=== PATIENT | female | born 1945 | race Caucasian/White ===

== ENCOUNTER → 2016-07-02 | Outpatient (CLI) | payer MEDICARE, BC ==
--- NOTE | 2016-07-03 06:33 | US ---
EXAMINATION TYPE: US mass soft tissue chest DATE OF EXAM: 07/02/2016 4:10 PM COMPARISON: NONE CLINICAL HISTORY: 71-year-old female palpable lump at sternum, N64.59 OTHER SIGNS AND SYMPTOMS IN CAYLA AST. Technique: Targeted sonographic examination at the site of patient's palpable abnormality along the s ternum. FINDINGS: There is a heterogeneous area of hypoechogenicity at the site of patient's palpable finding at the st ernum. Landmarks are not provided to assess the exact location. This appears to be just deep to the s ubcutaneous fat and possibly tenting the superficial fascia. This area measures approximately 2.3 cm craniocaudal by 1.6 cm thick by 2.3 cm wide. No internal vascularity seen. IMPRESSION: Focal heterogeneous area seen measuring 2.3 cm at the site of patient's palpable sternal abnormality. Anatomic landmarks are not provided on the images to ascertain its exact location but it appears to be deep to the subcutaneous fat and possibly just overlying the sternum tenting the superficial fasci a. The exact etiology is uncertain. Differential considerations include hypertrophic changes at the c ostochondral junction and a very complex synovial cyst. More aggressive etiologies are not excluded a t this time. Consider contrast-enhanced CT as further initial evaluation.
--- NOTE | 2016-07-03 07:43 | USB ---
Reason for exam: clinical finding. History: Patient is postmenopausal and history of other cancer. Family history of breast cancer in maternal aunt. Taking estrogen for 19 years 1 month. Indicated problem(s): pain in the right breast. Physical Findings: Nurse Summary: patient states physician felt something in left breast (nurse dw). US Breast BILAT Right breast ultrasound including all four quadrants, the retroareolar region and axilla demonstrates no cystic or solid lesion seen. Left breast ultrasound including all four quadrants, the retroareolar region and axilla demonstrates no cystic or solid lesion seen. These results were verbally communicated with the patient and result sheet given to the patient on 07/02/16. ASSESSMENT: Negative, BI-RAD 1 RECOMMENDATION: Return to routine screening mammogram schedule for both breasts. Manage patient on a clinical basis.
== END | disposition home or self-care (01) ==
LOC: RADUSWWP 13:54
PROVIDERS: ATTEND Family Medicine
DX: R93.7 Abnormal findings on diagnostic imaging of other parts of musculoskeletal system (principal); N64.59 Other signs and symptoms in breast

== ENCOUNTER → 2016-08-08 | Outpatient (CLI) | payer MEDICARE, BC ==
[2016-08-08 18:04] LABS: Blood Urea Nitrogen 21 mg/dL (7-17); Non-African American GFR(MDRD) >60 (>60 ml/min/1.73 sqM)
== END | disposition home or self-care (01) ==
LOC: LABWHC1 17:19
PROVIDERS: ATTEND Family Medicine
DX: I10 Essential (primary) hypertension (principal)
CPT/HCPCS: 36415; 82565; 84520

== ENCOUNTER → 2016-10-11 | Outpatient (CLI) | payer MEDICARE, BC ==
[2016-10-11 10:47] LABS: Basophils # (A) 0.1 k/uL (0-0.2); Basophils % (A) 1 %; CHCM 31.6; Eosinophils # (A) 0.4 k/uL (0-0.7); Eosinophils % (A) 6 %; HCT 31.7 % (34.0-46.0); HDW 4.03; HGB 10.2 gm/dL (11.4-16.0); Hypochromasia Marked; Luc # (Auto) 0.17; Luc % (Auto) 3; Lymphocytes # (A) 1.2 k/uL (1.0-4.8); Lymphocytes % (A) 18 %; MCH 25.5 pg (25.0-35.0); MCHC 32.2 g/dL (31.0-37.0); MCV 79.3 fL (80.0-100.0); Mean Platelet Volume 7.9; Monocytes # (A) 0.5 k/uL (0-1.0); Monocytes % (A) 7 %; Neutrophils # (A) 4.5 k/uL (1.3-7.7); Neutrophils % (A) 66 %; Poikilocytosis Moderate; RDW 13.5 % (11.5-15.5); WBC 6.7 k/uL (3.8-10.6); WBC (Perox) 5.99
[2016-10-11 11:21] LABS: ALT 39 U/L (9-52); AST 31 U/L (14-36); Alkaline Phosphatase 60 U/L (38-126); Anion Gap 16 mmol/L; Blood Urea Nitrogen 16 mg/dL (7-17); Calcium 9.9 mg/dL (8.4-10.2); Carbon Dioxide 22 mmol/L (22-30); Chloride 99 mmol/L (98-107); Cholesterol 176 mg/dL (<200); Glucose 93 mg/dL (74-99); HDL Cholesterol 43 mg/dL (40-60); Non-African American GFR(MDRD) >60 (>60 ml/min/1.73 sqM); Potassium 4.8 mmol/L (3.5-5.1); Sodium 137 mmol/L (137-145); Total Bilirubin 0.5 mg/dL (0.2-1.3); Total Protein 7.7 g/dL (6.3-8.2); Triglycerides 201 mg/dL (<150)
[2016-10-11 11:34] LABS: Polychromasia Present
[2016-10-11 14:26] LABS: Hemoglobin A1C 6.7 % (4.2-6.1)
== END | disposition home or self-care (01) ==
LOC: LABWHC1 10:13
PROVIDERS: ATTEND Family Medicine
DX: E11.9 Type 2 diabetes mellitus without complications (principal); I10 Essential (primary) hypertension; D64.9 Anemia, unspecified; E78.5 Hyperlipidemia, unspecified; E03.9 Hypothyroidism, unspecified
CPT/HCPCS: 36415; 80053; 80061; 83036; 84443; 85025

== ENCOUNTER 2017-01-01 09:51 | Day surgery (SDC) | payer MEDICARE, BC ==
[2016-12-31 10:00] VITALS: BMI 24.1
[~2017-01-01 09:51] MED LIST: LACTATED RINGERS 1,000 ML IV SCH; LIDOCAINE 1% 20 ML VIAL (10MG/ML) FOR IV START INTRADERMA PRN; TETRACAINE 0.5% OPHTH (PF) DROPS 4 ML BTL OP ONE; TIMOLOL 0.5% OPHTH SOLN (PF) 0.2 ML DROPERETTE OP ONE
[2017-01-01] MEDS: CYCLOPENTOLATE 1% OPHTH SOLN 2 ML BTL OP ONE ×3 (10:20→10:30)
[2017-01-01] MEDS: PHENYLEPHRINE 2.5% OPHTH DRP 2ML OP NR ×3 (10:22→10:31)
[2017-01-01] MEDS ORDERED: fentaNYL (PF) 50 MCG/ML 2 ML AMP ONE (12:32)
[2017-01-01] MEDS ORDERED: MIDAZOLAM 2 MG/2 ML VIAL ONE (12:32)
[2017-01-01] MEDS ORDERED: EPINEPHrine (PF) 0.3 ML in BALANCED SALT IRRIG SOLN COMB2 500 ML IRRIGATION ONE (12:45)
[2017-01-01] MEDS ORDERED: DUOVISC KIT (GREEN BOX) INTRAOCULA ONE (12:46)
[2017-01-01] MEDS ORDERED: BALANCED SALT IRRIG SOLN COMB2 15 ML IRRIG.SOLN IRRIGATION ONE (12:46)
[2017-01-01] MEDS ORDERED: LIDOCAINE 1% (PF) 10MG/ML VIAL MISCELLANE ONE (12:46)
--- NOTE | 2017-01-01 12:59 | P.OP ---
Date of Procedure: 01/01/17 Preoperative Diagnosis: NS Postoperative Diagnosis: same Procedure(s) Performed: PIOL, OS Implants: PCB00 23.00 Anesthesia: MAC Surgeon: Stevie Person Estimated Blood Loss (ml): 0 Pathology: none sent Condition: stable Disposition: same day Indications for Procedure: blurry vision Operative Findings: no comlpications Description of Procedure:
[2017-01-01 13:08] LABS: Glucose,Whole Blood 138 mg/dL (75-99)
[2017-01-01 13:36] VITALS: BP 166/70; PULSE 68; RESP 18
--- NOTE | 2017-01-02 10:27 | OP ---
DATE OF SURGERY: 01/01/2017 BREAD BAKER: PREOPERATIVE DIAGNOSES: Nuclear sclerosis, cortical sclerosis. POSTOPERATIVE DIAGNOSIS: Same. OPERATION: Phacoemulsification of cataract and intraocular lens implant of the left eye. ESTIMATED BLOOD LOSS: Zero. SPECIMEN TAKEN: None. NARRATIVE: After obtaining the appropriate consent, the patient was brought to the Operating Room where the patient was placed under cardiac monitoring and prepped and draped in the usual sterile manner. At the 5 oclock position a 15 degree super sharp blade was used to create a paracentesis followed by instillation of 1% Xylocaine MPF 50:50 mix with BSS into the anterior chamber. This was followed by Duovisc to stabilize the anterior chamber. At the 3 o clock position a self-sealing corneal flap incision was created using 2.8 mm stefania keratome. A cystatome was used to initiate a continuous tear capsulorrhexis which was completed with the Utrata forceps. A Binkhorst cannula was used to hydrodissect the lens nucleus followed by hydrodelineation. Phacoemulsification of the lens was performed utilizing phacochop in 9.34 seconds at 8% power. The remaining cortical material was removed using the irrigation aspiration mode followed by additional 1% Xylocaine MPF into the anterior chamber followed by viscoelastic to stabilize the capsular bag. An [id number] 23.0 diopters posterior chamber lens was placed into the capsular bag without difficulty. The remaining viscoelastic material was removed from the anterior chamber with the irrigation/aspiration. Balanced salt solution was used to normalize the intraocular pressure. The incision was checked for watertight integrity. The patient then received two drops of 0.5% timolol followed by two drops Vigamox, was lightly patched and shielded in the usual manner. There were no complications from the procedure. The patient tolerated the procedure well and was returned to recovery in good condition. MANGO
== END 2017-01-01 13:57 | disposition home or self-care (01) ==
LOC: OR 09:51
PROVIDERS: ATTEND Ophthalmology
DX: H25.012 Cortical age-related cataract, left eye (principal); H00.026 Hordeolum internum left eye, unspecified eyelid; H18.51 Endothelial corneal dystrophy; H52.02 Hypermetropia, left eye; H52.202 Unspecified astigmatism, left eye; Z96.1 Presence of intraocular lens; Z91.041 Radiographic dye allergy status; Z88.0 Allergy status to penicillin; J45.909 Unspecified asthma, uncomplicated; Z79.84 Long term (current) use of oral hypoglycemic drugs; Z79.899 Other long term (current) drug therapy; E11.319 Type 2 diabetes mellitus with unspecified diabetic retinopathy without macular edema; Z82.49 Family history of ischemic heart disease and other diseases of the circulatory system; I48.91 Unspecified atrial fibrillation; E11.43 Type 2 diabetes mellitus with diabetic autonomic (poly)neuropathy; K31.84 Gastroparesis
CPT/HCPCS: 66984; C1780; J2250; J0171; J3010; J2001

== ENCOUNTER → 2017-03-18 | Outpatient (CLI) | payer MEDICARE, BC ==
[2017-03-18 15:33] LABS: Basophils % (A) 1 %; CH 26.9; CHCM 31.9; Eosinophils # (A) 0.2 k/uL (0-0.7); Eosinophils % (A) 3 %; HDW 3.31; HGB 11.8 gm/dL (11.4-16.0); Hypochromasia Slight; Luc # (Auto) 0.09; Luc % (Auto) 1; Lymphocytes # (A) 1.2 k/uL (1.0-4.8); Lymphocytes % (A) 17 %; MCH 26.3 pg (25.0-35.0); MCHC 31.1 g/dL (31.0-37.0); MCV 84.5 fL (80.0-100.0); Mean Platelet Volume 7.1; Monocytes # (A) 0.4 k/uL (0-1.0); Monocytes % (A) 5 %; Neutrophils # (A) 5.2 k/uL (1.3-7.7); Neutrophils % (A) 74 %; RBC 4.49 m/uL (3.80-5.40); RDW 13.4 % (11.5-15.5); WBC 7.1 k/uL (3.8-10.6); WBC (Perox) 6.95
[2017-03-18 15:34] LABS: ALT 41 U/L (9-52); AST 30 U/L (14-36); Alkaline Phosphatase 64 U/L (38-126); Anion Gap 15 mmol/L; Blood Urea Nitrogen 15 mg/dL (7-17); Calcium 9.5 mg/dL (8.4-10.2); Carbon Dioxide 23 mmol/L (22-30); Chloride 91 mmol/L (98-107); Cholesterol 166 mg/dL (<200); Glucose 109 mg/dL (74-99); HDL Cholesterol 43 mg/dL (40-60); Non-African American GFR(MDRD) >60 (>60 ml/min/1.73 sqM); Potassium 5.2 mmol/L (3.5-5.1); Sodium 129 mmol/L (137-145); Total Bilirubin 0.4 mg/dL (0.2-1.3); Total Protein 7.6 g/dL (6.3-8.2)
[2017-03-18 21:57] LABS: Hemoglobin A1C 6.4 % (4.2-6.1)
== END | disposition home or self-care (01) ==
LOC: LABWHC1 14:41
PROVIDERS: ATTEND Family Medicine
DX: E11.9 Type 2 diabetes mellitus without complications (principal); I10 Essential (primary) hypertension; D64.9 Anemia, unspecified; E78.5 Hyperlipidemia, unspecified; E03.9 Hypothyroidism, unspecified
CPT/HCPCS: 36415; 80053; 80061; 83036; 84443; 85025

== ENCOUNTER → 2017-04-24 | Outpatient (CLI) | payer MEDICARE, BC ==
--- NOTE | 2017-04-24 17:53 | XR ---
EXAMINATION TYPE: XR chest 2V DATE OF EXAM: 04/24/2017 COMPARISON: 03/12/2011 HISTORY: Cough and congestion TECHNIQUE: Frontal and lateral views of the chest are obtained. FINDINGS: Heart and mediastinum are normal. Lungs are clear. Diaphragm is normal. Cervical spine fus ion surgery is noted. There is some spurring in the thoracic spine. IMPRESSION: No active cardiopulmonary disease. Normal heart. No change.
== END ==
LOC: RADXRMAIN 16:43
PROVIDERS: ATTEND Family Medicine
DX: J18.1 Lobar pneumonia, unspecified organism (principal)
CPT/HCPCS: 71020

== ENCOUNTER → 2017-06-25 | Outpatient (CLI) | payer MEDICARE, BC ==
[2017-06-25 16:29] LABS: ALT 34 U/L (9-52); AST 26 U/L (14-36); Albumin 4.6 g/dL (3.5-5.0); Alkaline Phosphatase 67 U/L (38-126); Anion Gap 15 mmol/L; Blood Urea Nitrogen 19 mg/dL (7-17); Calcium 10.3 mg/dL (8.4-10.2); Carbon Dioxide 26 mmol/L (22-30); Chloride 96 mmol/L (98-107); Cholesterol 214 mg/dL (<200); Glucose 126 mg/dL (74-99); HDL Cholesterol 44 mg/dL (40-60); LDL Cholesterol,Calculated 134 mg/dL (0-99); Potassium 4.4 mmol/L (3.5-5.1); Sodium 137 mmol/L (137-145); Total Bilirubin 0.3 mg/dL (0.2-1.3); Total Protein 7.5 g/dL (6.3-8.2); Triglycerides 179 mg/dL (<150)
[2017-06-25 17:24] LABS: Anisocytosis Slight; Basophils % (A) 1 %; Eosinophils # (A) 0.5 k/uL (0-0.7); Eosinophils % (A) 10 %; HCT 40.2 % (34.0-46.0); HGB 13.5 gm/dL (11.4-16.0); Lymphocytes # (A) 1.1 k/uL (1.0-4.8); Lymphocytes % (A) 21 %; MCH 28.9 pg (25.0-35.0); MCHC 33.5 g/dL (31.0-37.0); MCV 86.1 fL (80.0-100.0); Mean Platelet Volume 7.8; Monocytes # (A) 0.3 k/uL (0-1.0); Monocytes % (A) 5 %; Neutrophils # (A) 3.3 k/uL (1.3-7.7); Neutrophils % (A) 62 %; Platelet Count 209 k/uL (150-450); RBC 4.66 m/uL (3.80-5.40); RDW 16.8 % (11.5-15.5); WBC 5.4 k/uL (3.8-10.6)
[2017-06-26 05:19] LABS: Hemoglobin A1C 6.3 % (4.0-6.0)
== END | disposition home or self-care (01) ==
LOC: LABWHC1 15:11 → EDSTATUS 15:24
PROVIDERS: ATTEND Family Medicine
DX: E11.43 Type 2 diabetes mellitus with diabetic autonomic (poly)neuropathy (principal); E55.9 Vitamin D deficiency, unspecified
CPT/HCPCS: 36415; 80053; 80061; 82306; 83036; 84443; 85025

== ENCOUNTER → 2017-06-25 | Outpatient (CLI) | payer MEDICARE, BC ==
--- NOTE | 2017-06-26 09:58 | MM ---
Reason for exam: screening (asymptomatic). Last mammogram was performed 1 year and 2 months ago. History: Patient is postmenopausal and history of other cancer. Family history of breast cancer in maternal aunt. Took estrogen for 19 years 1 month. Physical Findings: A clinical breast exam by your physician is recommended on an annual basis and results should be correlated with mammographic findings. MG 3D Screening Mammo W/Cad Bilateral CC and MLO view(s) were taken. Prior study comparison: May 02, 2016, bilateral MG 3d screening mammo w/cad. May 01, 2015, bilateral MG screening mammo w CAD. The breast tissue is heterogeneously dense. This may lower the sensitivity of mammography. No suspicious abnormality. No significant changes when compared with prior studies. ASSESSMENT: Negative, BI-RAD 1 RECOMMENDATION: Routine screening mammogram of both breasts in 1 year.
== END | disposition home or self-care (01) ==
LOC: RADMAMWWP 14:08
PROVIDERS: ATTEND Family Medicine
DX: Z12.31 Encounter for screening mammogram for malignant neoplasm of breast (principal)
CPT/HCPCS: 77063; 77067

== ENCOUNTER 2017-07-07 20:31 | Emergency (ER) | payer MEDICARE, BC ==
[2017-07-07] MEDS ORDERED: HYDROmorphone 0.5 MG/0.5 ML SYRINGE IVP STA (20:57)
[2017-07-07] MEDS ORDERED: ONDANSETRON 4 MG/2 ML VIAL IVP STA ×2 (20:59→22:49)
[2017-07-07] MEDS ORDERED: HYDROmorphone 2 MG/ML 1 ML SYRINGE IVP STA (21:07)
--- NOTE | 2017-07-07 21:14 | ED ---
Trauma HPI - General Source: patient Mode of arrival: EMS Limitations: no limitations <Tayo Alberto - Last Filed: 07/07/17 21:58> <Gianni Mcgee - Last Filed: 07/08/17 01:30> - General Chief Complaint: Extremity Injury, Upper Stated Complaint: FALL Time Seen by Provider: 07/07/17 20:40 - History of Present Illness Initial Comments: This 72-year-old white female presents via EMS after she apparently slipped and fell possibly on a wet floor at [facility] just prior to arrival. She states that she fell on her left side and is primarily complaining of pain into her left proximal humerus. She states that this is causing her severe amount of pain and is worse with any attempts at movement. She also landed on her left hip and is complaining of some pain into her left hip and has had a previous left hip replacement. She was able to ambulate at one point prior to EMS arrival. She also is complaining of some pain into her right posterior thorax. She apparently hit her occiput but did not lose any consciousness or have any other neurologic complaints. She complains of pain to her fingertips of her right hand. She denies any other injuries or complaints or modifying factors. ( Tayo Alberto) - Related Data Home Medications Medication Instructions Recorded Confirmed Albuterol Sulfate [Ventolin HFA] 2 inhalation INHALATION RT-Q6H PRN 05/04/1405/12 Montelukast [Singulair] 10 mg PO HS 05/04/14 07/07/17 metFORMIN HCL [metFORMIN HCL] 1,000 mg PO BID 05/04/14 07/07/17 Enalapril [Vasotec] 20 mg PO BID 08/14/15 07/07/17 Mometasone Furoate [Nasonex Nasal 1 spray EA NOSTRIL DAILY PRN 08/14/15 07/07/17 [place]] Omeprazole 20 mg PO HS 08/14/15 07/07/17 Atorvastatin [Lipitor] 40 mg PO DAILY 12/31/16 07/07/17 DULoxetine HCL [Cymbalta] 20 mg PO DAILY 07/07/17 07/07/17 Digoxin 250 mcg PO DAILY 07/07/17 07/07/17 glipiZIDE [Glucotrol] 5 - 10 mg PO AC-BID 07/07/17 07/07/17 Previous Rx's Medication Instructions Recorded Hydrocodone/Acetaminophen [Lorton 1 each PO Q4HR PRN #20 tab 07/08/17 5-325] Allergies Allergy/AdvReac Type Severity Reaction Status Date / Time adhesive Allergy Rash/Hives Verified 07/07/17 22:30 ciprofloxacin [From Cipro] Allergy Unknown Verified 07/07/17 22:30 ciprofloxacin HCl Allergy Unknown Verified 07/07/17 22:30 [From Cipro] enoxaparin sodium Allergy Dyspnea Verified 07/07/17 22:30 [From Lovenox] Iodinated Contrast- Oral and Allergy Dyspnea Verified 07/07/17 22:30 IV Dye [Iodinated Contrast Media - IV Dye] isosorbide mononitrate Allergy HEADACHES Verified 07/07/17 22:30 [From Imdur] naproxen Allergy Unknown Verified 07/07/17 22:30 niacin Allergy HOT FLASHES Verified 07/07/17 22:30 [From Niaspan Extended-Release] nickel Allergy Unknown Verified 07/07/17 22:30 nitrofurantoin Allergy Unknown Verified 07/07/17 22:30 [From Macrobid] nitrofurantoin Allergy Unknown Verified 07/07/17 22:30 macrocrystalline [From Macrobid] Penicillins Allergy Dyspnea Verified 07/07/17 22:30 tramadol Allergy Unknown Verified 07/07/17 22:30 meperidine HCl [From Demerol] AdvReac Unknown Verified 07/07/17 22:30 pioglitazone HCl [From Actos] AdvReac FLUID Verified 07/07/17 22:30 RETENTION prednisone AdvReac RAISES Verified 07/07/17 22:30 SUGAR LEVEL pregabalin [From Lyrica] AdvReac Swelling Verified 07/07/17 22:30 Review of Systems ROS Other: All systems not noted in ROS Statement are negative. <Tayo Alberto - Last Filed: 07/07/17 21:58> ROS Other: All systems not noted in ROS Statement are negative. <Gianni Mcgee - Last Filed: 07/08/17 01:30> ROS Statement: Those systems with pertinent positive or pertinent negative responses have been documented in the HPI. Past Medical History Past Medical History: Asthma, Diabetes Mellitus, Fibromyalgia, Hyperlipidemia, Hypertension, Thyroid Disorder Additional Past Medical History / Comment(s): hep A, anemia History of Any Multi-Drug Resistant Organisms: MRSA Date of last positivie culture/infection: 2007 MDRO Source:: right arm Past Surgical History: Back Surgery, Bladder Surgery, Cholecystectomy, Hysterectomy, Joint Replacement, Orthopedic Surgery, Tonsillectomy Additional Past Surgical History / Comment(s): ovarian cysts, angelina hip replacement,rt cataract,rt carotidendarectomy Past Anesthesia/Blood Transfusion Reactions: No Reported Reaction Additional Past Anesthesia/Blood Transfusion Reaction / Comment(s): no problems with prior blood transfusion Past Psychological History: No Psychological Hx Reported Smoking Status: Never smoker <Tayo Alberto - Last Filed: 07/07/17 21:58> General Exam Limitations: no limitations <Tayo Alberto - Last Filed: 07/07/17 21:58> <Gianni Mcgee - Last Filed: 07/08/17 01:30> - General Exam Comments Initial Comments: GENERAL: The patient is well nourished and well hydrated. VITAL SIGNS: Heart rate, blood pressure, respiratory rate reviewed as recorded in nurse's notes. EYES: Pupils are round and reactive. Extraocular movements are intact. No conjunctival / lid redness or swelling. ENT: No external evidence of injury, swelling, or ecchymosis. Airway is patent. Throat is clear. NECK: Nontender. No swelling or evidence of injury. No subcutaneous emphysema. Trachea is midline. No thyroid mass. HEART: Regular rate and rhythm. Good peripheral pulses. LUNGS/CHEST: Breath sounds clear and equal bilaterally. No rales, rhonchi, or wheezes. There is minimal tenderness present to the posterior thoracic ribs. No subcutaneous emphysema noted. ABDOMEN: Abdomen soft without tenderness. No palpable masses or organomegaly. No peritoneal signs. No abdominal wall swelling or ecchymosis. EXTREMITIES: Significant tenderness noted present to the left proximal humerus. Range of motion is not attempted due to pain. There is significant tenderness and swelling/hematoma formation to the left lateral hip. There is minimal tenderness present to the distal phalanxes of the third fourth and fifth digits right hand. Normal muscle tone and function. No thoracolumbar tenderness. NEUROLOGIC: Sensation is grossly intact. Cranial nerve exam reveals face is symmetrical, tongue is midline, speech is clear. SKIN: No abrasions or ecchymosis is noted. No induration or masses noted. PSYCHIATRIC: Alert and oriented. Appropriate behavior and judgment. (Tayo Alberto) Vital Signs 07/07/17 07/07/17 07/07/17 20:45 21:30 21:32 Temperature 97.6 F Pulse Rate 76 70 80 Respiratory 18 16 18 Rate Blood Pressure 198/95 182/91 174/86 O2 Sat by Pulse 97 94 L 94 L Oximetry 07/07/17 07/07/17 07/07/17 21:35 23:42 23:47 Temperature Pulse Rate 82 106 H 62 Respiratory 18 20 20 Rate Blood Pressure 144/108 206/86 217/100 O2 Sat by Pulse 96 96 100 Oximetry 07/07/17 07/07/17 07/08/17 23:52 23:57 01:01 Temperature Pulse Rate 99 86 95 Respiratory 20 20 18 Rate Blood Pressure 218/90 191/91 186/87 O2 Sat by Pulse 100 96 96 Oximetry Procedures - Orthopedic Joint Reduction Joint #1 Consent Obtained: verbal consent Time Out Performed: Yes Side: left Joint Reduction Location: shoulder Analgesia: procedural sedation Shoulder Technique Used (if applicable): traction/counter-traction Post-Reduction Neuro Exam: intact Post-Reduction Vascular Exam: intact Post Reduction X-Ray Obtained: Yes Post Reduction X-Ray Results: reduced Splint Applied: Yes Patient Tolerated Procedure: well - Procedural Sedation Procedural Sedation Start Time: 23:40 Procedural Sedation Stop Time: 00:10 Indications: fracture/dislocation reduction ASA Class: I Preparation: surveillance monitor applied, pulse oximeter, supplemental O2 applied IV Etomidate Dose (mgs): 12 Complications: none Patient Tolerated Procedure: well <Gianni Mcgee - Last Filed: 07/08/17 01:30> Medical Decision Making <Tayo Alberto - Last Filed: 07/07/17 21:58> <Gianni Mcgee - Last Filed: 07/08/17 01:30> - Medical Decision Making The patient was seen and examined. She did receive morphine IM per EMS but states that this does not alleviate her pain. She receives Dilaudid 1 mg IV as well as some Zofran. Further care will be passed off to oncoming physician. ( Tayo Alberto) CT of the brain shows no acute abnormality. X-ray of the hip and pelvis showed no acute abnormality. X-ray of the hand shows no acute normalities. X-ray of the chest shows no acute abnormality of the chest however shoulder dislocation the humerus x-ray is well read demonstrates the left shoulder dislocation which appears to be anterior. I reduce the patient with countertraction under conscious sedation (Gianni Mcgee) Disposition <Tayo Alberto - Last Filed: 07/07/17 21:58> Time of Disposition: 01:29 <Gianni Mcgee - Last Filed: 07/08/17 01:30> Clinical Impression: Hypertension, Contusion of left hip, Contusion of rib on right side, Contusion of finger of right hand, Head injury, Fall from standing, Shoulder dislocation Disposition: HOME SELF-CARE Prescriptions: Hydrocodone/Acetaminophen [Lorton 5-325] 1 each PO Q4HR PRN #20 tab PRN Reason: Pain Referrals: Madelin Jefferson MD [Primary Care Provider] - 1-2 days
[2017-07-07] MEDS ORDERED: hydrALAZINE HCL 20 MG/ML 1 ML VIAL IVP STA (21:22)
--- NOTE | 2017-07-07 22:10 | CT ---
EXAMINATION TYPE: CT brain wo con DATE OF EXAM: 07/07/2017 COMPARISON: NONE HISTORY: Fall injury today. CT DLP: 1020 mGycm Automated exposure control for dose reduction was used. FINDINGS: There is cerebral cortical atrophy. There is no mass effect nor midline shift. There is no sign of in tracranial hemorrhage. There are small lacunar infarcts in the anterior internal capsule bilaterally. Calvarium is intact. IMPRESSION: CEREBRAL ATROPHY AND CHRONIC SMALL VESSEL ISCHEMIA. NO ACUTE INTRACRANIAL ABNORMALITY.
--- NOTE | 2017-07-07 22:13 | XR ---
EXAMINATION TYPE: XR chest 2V DATE OF EXAM: 07/07/2017 COMPARISON: 04/24/2017 HISTORY: Chest pain TECHNIQUE: Frontal and lateral views of the chest are obtained. FINDINGS: There is no heart failure nor confluent pneumonic infiltrate. There is poor inspiration. T horacic aorta is atheromatous. Cervical spine fusion surgery is noted. Bony thorax shows anterior dis location of the left humeral head.. There is no sign of pleural effusion. IMPRESSION: No heart failure. Inspiration is decreased compared to old exam. No pulmonary consolidat ion.
--- NOTE | 2017-07-07 22:14 | XR ---
EXAMINATION TYPE: XR shoulder complete LT DATE OF EXAM: 07/07/2017 COMPARISON: NONE HISTORY: Fell today. Shoulder pain. TECHNIQUE: 2 views FINDINGS: There is anterior dislocation of the humeral head. I see no fracture. IMPRESSION: Anterior left shoulder dislocation.
--- NOTE | 2017-07-07 22:17 | XR ---
EXAMINATION TYPE: XR hand complete RT DATE OF EXAM: 07/07/2017 COMPARISON: NONE HISTORY: Fall with pain TECHNIQUE: 3 views FINDINGS: There is some spurring at the first carpometacarpal joint. I see no fracture nor dislocatio n. Carpal bones appear intact. IMPRESSION: Mild osteoarthritis. No fracture seen.
--- NOTE | 2017-07-07 22:18 | XR ---
EXAMINATION TYPE: XR humerus LT DATE OF EXAM: 07/07/2017 COMPARISON: NONE HISTORY: Pain TECHNIQUE: 2 views FINDINGS: There is anterior dislocation of the humeral head. Elbow joint appears intact. I see no fra cture. IMPRESSION: No humerus fracture seen. Anterior dislocation of the humeral head.
--- NOTE | 2017-07-07 22:35 | XR ---
EXAMINATION TYPE: XR Hip LT and AP Pelvis DATE OF EXAM: 07/07/2017 COMPARISON: NONE HISTORY: Hip pain TECHNIQUE: A single AP view of the pelvis is obtained. Two views of the left hip are obtained. FINDINGS: The pelvic ring is intact. There are bilateral hip prostheses. Sacroiliac joints appear in tact. I see no fracture. CONCLUSION: No acute abnormality of the pelvis and left hip.
[2017-07-07] MEDS ORDERED: ETOMIDATE 2 MG/ML 10 ML VIAL IVP STA (22:55)
--- NOTE | 2017-07-08 00:26 | XR ---
EXAMINATION TYPE: XR shoulder limited LT DATE OF EXAM: 07/07/2017 COMPARISON: Today HISTORY: Post reduction TECHNIQUE: Single view FINDINGS: There is anatomic reduction of the glenohumeral joint. I see no fracture. IMPRESSION: Anatomic reduction. No fracture seen.
[2017-07-08] MEDS ORDERED: METOCLOPRAMIDE 5 MG/ML 2 ML VIAL IVP STA (00:42)
[2017-07-08 01:04] VITALS: RESP 18
[2017-07-08] MEDS ORDERED: HYDROmorphone 0.5 MG/0.5 ML SYRINGE IVP STA (01:33)
[2017-07-08 01:55] VITALS: BP 170/83; PULSE 78; TEMP 98.7
== END 2017-07-08 01:59 | disposition home or self-care (01) ==
LOC: EC 20:31
DX: S43.005A Unspecified dislocation of left shoulder joint, initial encounter (principal); S70.02XA Contusion of left hip, initial encounter; S20.211A Contusion of right front wall of thorax, initial encounter; S60.00XA Contusion of unspecified finger without damage to nail, initial encounter; I10 Essential (primary) hypertension; E78.5 Hyperlipidemia, unspecified; J45.909 Unspecified asthma, uncomplicated; E11.9 Type 2 diabetes mellitus without complications; Z79.84 Long term (current) use of oral hypoglycemic drugs; Z79.899 Other long term (current) drug therapy; Z88.0 Allergy status to penicillin; Z88.1 Allergy status to other antibiotic agents; Z88.5 Allergy status to narcotic agent; Z88.6 Allergy status to analgesic agent; Z88.8 Allergy status to other drugs, medicaments and biological substances; Z91.041 Radiographic dye allergy status; Z91.09 Other allergy status, other than to drugs and biological substances; Z86.14 Personal history of Methicillin resistant Staphylococcus aureus infection; Z96.643 Presence of artificial hip joint, bilateral; W01.0XXA Fall on same level from slipping, tripping and stumbling without subsequent striking against object, initial encounter; Y92.89 Other specified places as the place of occurrence of the external cause
CPT/HCPCS: 73030; 73502; 73020; 73060; 73130; 71046; 70450; 99284; 23650; 99152; 99153; 96374; 96375 ×3; 96376 ×2; J1170 ×2; J0360; J2765; J2405

== ENCOUNTER → 2018-05-14 | Outpatient (CLI) | payer MEDICARE, BC ==
[2018-05-14 16:01] LABS: Anisocytosis Slight; Basophils % (A) 1 %; Eosinophils # (A) 0.3 k/uL (0-0.7); Eosinophils % (A) 5 %; HGB 13.9 gm/dL (11.4-16.0); Lymphocytes # (A) 1.2 k/uL (1.0-4.8); Lymphocytes % (A) 24 %; MCHC 33.1 g/dL (31.0-37.0); MCV 84.7 fL (80.0-100.0); Monocytes # (A) 0.3 k/uL (0-1.0); Monocytes % (A) 5 %; Neutrophils # (A) 3.4 k/uL (1.3-7.7); Neutrophils % (A) 64 %; Platelet Count 258 k/uL (150-450); RBC 4.96 m/uL (3.80-5.40); RDW 17.1 % (11.5-15.5); WBC 5.3 k/uL (3.8-10.6)
[2018-05-15 02:39] LABS: Hemoglobin A1C 6.6 % (4.0-6.0)
[2018-05-15 03:52] LABS: Albumin 4.9 g/dL (3.80-4.90); Albumin/Globulin Ratio 2.13 (1.20-2.10); Anion Gap 14.1 mmol/L (4.00-12.00); Carbon Dioxide 24.9 mmol/L (21.6-31.8); Globulin 2.3 g/dL (2.1-3.7); LDL Cholesterol,Calculated 114.8 mg/dL (0.0-131.0); Potassium 4.5 mmol/L (3.5-5.5); Total Bilirubin 0.3 mg/dL (0.3-1.2); Total Protein 7.2 g/dL (6.2-8.2); VLDL Calculation 46.2 mg/dL (5.00-40.00)
== END | disposition home or self-care (01) ==
LOC: LABWHC1 15:38
PROVIDERS: ATTEND Family Medicine
DX: E11.43 Type 2 diabetes mellitus with diabetic autonomic (poly)neuropathy (principal); E55.9 Vitamin D deficiency, unspecified
CPT/HCPCS: 36415; 80053; 80061; 82306; 83036; 84443; 85025

== ENCOUNTER → 2018-05-29 | Outpatient (CLI) | payer MEDICARE, BC ==
--- NOTE | 2018-05-29 13:37 | US ---
EXAMINATION TYPE: US kidneys/renal and bladder DATE OF EXAM: 05/29/2018 COMPARISON: NONE CLINICAL HISTORY: N39.0 RECURRENT UTI. EXAM MEASUREMENTS: Right Kidney: 11.2 x 4.0 x 4.7 cm Left Kidney: 11.7 x 5.6 x 4.4 cm Right Kidney: lateral cyst measures 2.7 x 2.9 x 2.8 cm Left Kidney: No hydronephrosis or masses seen Bladder: not well distended Bilateral Jets seen: No There is no evidence for hydronephrosis at this point in time. No nephrolithiasis is seen. The urin mariana bladder is limited by incomplete distention. IMPRESSION: 1. There is a 2.9 cm cyst involving the lateral margin of the right kidney is also is incidentally no erika on a CT of the lumbar spine 08/14/2015 where it only partially visualized. Finding is suggestive o f a simple cyst.
== END | disposition home or self-care (01) ==
LOC: RADUSWWP 13:08
PROVIDERS: ATTEND Obstetrics & Gynecology
DX: N28.1 Cyst of kidney, acquired (principal); N39.0 Urinary tract infection, site not specified
CPT/HCPCS: 76770

== ENCOUNTER → 2018-06-30 | Outpatient (CLI) | payer MEDICARE, BC ==
--- NOTE | 2018-06-30 15:29 | US ---
EXAMINATION TYPE: US thyroid st tissue head/neck DATE OF EXAM: 06/30/2018 COMPARISON: 12/15/2015 ultrasound CLINICAL HISTORY: E04.2 GOITER. GLAND SIZE: Right Lobe: 5.0 x 1.3 x 1.5 cm Overall Parenchyma: homogenous Left Lobe: 4.1 x 1.5 x 1.4 cm Overall Parenchyma: homogeneous Isthmus Thickness: 0.3 cm NODULES RIGHT: # of nodules measured on right: 2 1. 0.9 X 0.7 x 0.6 cm hypoechoic solid nodule at the lower pole with well-defined margins; interrup erika peripheral calcification. This nodule is wider than tall and shows no intranodular vascularity. Prior size: 0.9 x 0.7 x 0.8 cm 2. 0.4 X 0.3 x 0.3 cm hypoechoic solid nodule at the upper pole with well-defined margins; . This n odule is wider than tall and shows no intranodular vascularity. Prior size: 0.4 x 0.3 x 0.3 cm LEFT: # of nodules measured on left: 2 1. 0.7 X 0.3 x 0.7 cm hypoechoic mixed nodule at the lower pole with well-defined margins; . This nodule is wider than tall and shows intranodular vascularity. Prior size: 0.6 x 0.3 x 0.5 cm 2. 0.8 X 0.5 x 0.7 cm hypoechoic mixed nodule at the lower pole with well-defined margins; . This n odule is wider than tall and shows intranodular vascularity. Prior size: 0.7 x 0.6 x 0.5 cm ISTHMUS: # of nodules measured in the isthmus: 0 Bilateral neck scanned, no evidence of lymphadenopathy. Nodules as described. IMPRESSION: 1. Stable subcentimeter nodules bilateral thyroid lobes
--- NOTE | 2018-07-02 09:51 | MM ---
Reason for exam: screening (asymptomatic). Last mammogram was performed 1 year ago. History: Patient is postmenopausal and history of other cancer. Family history of breast cancer in maternal aunt. Took estrogen for 19 years 1 month. Physical Findings: A clinical breast exam by your physician is recommended on an annual basis and results should be correlated with mammographic findings. MG 3D Screening Mammo W/Cad Bilateral CC and MLO view(s) were taken. Prior study comparison: June 25, 2017, bilateral MG 3d screening mammo w/cad. May 02, 2016, bilateral MG 3d screening mammo w/cad. There are scattered fibroglandular densities. No significant changes when compared with prior studies. ASSESSMENT: Benign, BI-RAD 2 RECOMMENDATION: Routine screening mammogram of both breasts in 1 year.
== END | disposition home or self-care (01) ==
LOC: RADMAMWWP 14:17
PROVIDERS: ATTEND Family Medicine
DX: Z12.31 Encounter for screening mammogram for malignant neoplasm of breast (principal); E04.2 Nontoxic multinodular goiter
CPT/HCPCS: 76536; 77063; 77067

== ENCOUNTER → 2019-01-26 | Outpatient (CLI) | payer MEDICARE, BC ==
[2019-01-26 14:39] LABS: Albumin 4.6 g/dL (3.5-5.0); Basophils % (A) 1 %; Calcium 10.2 mg/dL (8.4-10.2); Eosinophils # (A) 0.3 k/uL (0-0.7); Eosinophils % (A) 6 %; HCT 39.7 % (34.0-46.0); HGB 13.7 gm/dL (11.4-16.0); Lymphocytes # (A) 1.2 k/uL (1.0-4.8); Lymphocytes % (A) 23 %; MCH 29.9 pg (25.0-35.0); MCHC 34.6 g/dL (31.0-37.0); MCV 86.5 fL (80.0-100.0); Monocytes # (A) 0.3 k/uL (0-1.0); Monocytes % (A) 6 %; Neutrophils # (A) 3.2 k/uL (1.3-7.7); Neutrophils % (A) 62 %; Platelet Count 204 k/uL (150-450); Potassium 4.4 mmol/L (3.5-5.1); RBC 4.59 m/uL (3.80-5.40); Total Bilirubin 0.7 mg/dL (0.2-1.3); Total Protein 7.5 g/dL (6.3-8.2); WBC 5.2 k/uL (3.8-10.6)
[2019-01-26 21:12] LABS: Hemoglobin A1C 6.2 % (4.0-6.0)
== END | disposition home or self-care (01) ==
LOC: LAB 12:32
PROVIDERS: ATTEND Family Medicine
DX: E78.5 Hyperlipidemia, unspecified (principal)
CPT/HCPCS: 80053; 80061; 83036; 84443; 85025

== ENCOUNTER → 2019-02-11 | Outpatient (CLI) | payer MEDICARE, BC ==
--- NOTE | 2019-02-11 10:42 | US ---
EXAMINATION TYPE: US abdomen complete DATE OF EXAM: 02/11/2019 COMPARISON: US 2019 CLINICAL HISTORY: R14.0 ABD DISTENSION. Abdominal distension and bloating x couple months, history of cholecystectomy EXAM MEASUREMENTS: Liver Length: 16.7 cm Gallbladder Wall: surgically absent CBD: 0.8 cm Spleen: 11.7 cm Right Kidney: 10.7 x 5.2 x 4.7 cm Left Kidney: 9.9 x 5.5 x 5.1 cm Pancreas: visualized portions wnl, limited by overlying midline bowel gas Liver: wnl Gallbladder: surgically absent Evidence for sonographic Ortega's sign: no CBD: wnl for post cholecystectomy Spleen: wnl Right Kidney: exophytic 3.1 x 3.0 x 2.8cm cyst lateral mid pole, fullness of renal pelvis Left Kidney: fullness of renal pelvis Upper IVC: wnl Abd Aorta: visualized portions wnl, limited by overlying midline bowel gas The liver is homogenous. The intrahepatic portion of the IVC and proximal abdominal aorta are within normal limits. Common bile duct is unremarkable. The visualized portions of the pancreas are homoge nous. The spleen is unremarkable. Kidneys are symmetric and free of hydronephrosis. IMPRESSION: 1. Exophytic right-sided renal cyst. 2. Fullness of the renal pelves without overt hydronephrosis.
--- NOTE | 2019-02-11 10:59 | US ---
EXAMINATION TYPE: US pelvic complete DATE OF EXAM: 02/11/2019 COMPARISON: NONE CLINICAL HISTORY: R10.2 PELVIC PAIN. Abdominal distension and bloating x couple months, 3, pa ra 3, history of complete hysterectomy 30+ years ago TECHNIQUE: . Transabdominal sonographic images of the pelvis were acquired. Date of LMP: 30+ years ago EXAM MEASUREMENTS: Uterus: surgically absent Endometrial Stripe: surgically absent Right Ovary: surgically absent Left Ovary: surgically absent 1. Uterus: surgically absent 2. Endometrium: surgically absent 3. Right Ovary: surgically absent 4. Left Ovary: surgically absent 5. Bilateral Adnexa: wnl 6. Posterior cul-de-sac: wnl IMPRESSION: Postoperative pelvis. Vaginal cuff is unremarkable. No evidence for mass or free fluid.
== END ==
LOC: RADUSWWP 09:43
PROVIDERS: ATTEND Family Medicine
DX: N28.1 Cyst of kidney, acquired (principal); N28.89 Other specified disorders of kidney and ureter
CPT/HCPCS: 76700; 76857

== ENCOUNTER → 2019-05-12 | Outpatient (CLI) | payer MEDICARE, BC ==
[2019-05-12 17:42] LABS: Basophils % (A) 0 %; Eosinophils # (A) 0.6 k/uL (0-0.7); Eosinophils % (A) 8 %; HCT 40.6 % (34.0-46.0); HGB 13.9 gm/dL (11.4-16.0); Lymphocytes # (A) 1.3 k/uL (1.0-4.8); Lymphocytes % (A) 18 %; MCHC 34.3 g/dL (31.0-37.0); MCV 87.6 fL (80.0-100.0); Mean Platelet Volume 8.2; Monocytes # (A) 0.3 k/uL (0-1.0); Monocytes % (A) 4 %; Neutrophils # (A) 5.3 k/uL (1.3-7.7); Neutrophils % (A) 70 %; Platelet Count 222 k/uL (150-450); RBC 4.64 m/uL (3.80-5.40); RDW 13.1 % (11.5-15.5); WBC 7.6 k/uL (3.8-10.6)
[2019-05-12 23:43] LABS: African American GFR (CKD) 84.2 (60.0-200.0); Albumin 4.8 g/dL (3.80-4.90); Albumin/Globulin Ratio 2.4 (1.60-3.17); Anion Gap 11.9 mmol/L (4.00-12.00); BUN/Creat Ratio 18.75 Ratio (12.00-20.00); Calcium 9.5 mg/dL (8.7-10.3); Carbon Dioxide 27.1 mmol/L (21.6-31.8); Chol/HDL Ratio 4.89; LDL Cholesterol,Calculated 104.4 mg/dL (0.0-131.0); Non-African American GFR(CKD) 72.6 (60.0-200.0); Potassium 4.1 mmol/L (3.5-5.5); Total Bilirubin 0.5 mg/dL (0.2-1.2); Total Protein 6.8 g/dL (6.2-8.2); VLDL Calculation 43.6 mg/dL (5.00-40.00)
[2019-05-13 01:01] LABS: Hemoglobin A1C 6.7 % (4.0-6.0)
== END | disposition home or self-care (01) ==
LOC: LABWHC1 16:09
PROVIDERS: ATTEND Family Medicine
DX: D64.9 Anemia, unspecified (principal); I25.10 Atherosclerotic heart disease of native coronary artery without angina pectoris; E11.42 Type 2 diabetes mellitus with diabetic polyneuropathy; E03.9 Hypothyroidism, unspecified; E55.9 Vitamin D deficiency, unspecified; Z11.59 Encounter for screening for other viral diseases
CPT/HCPCS: 36415; 80053; 80061; 82306; 83036; 84443; 85025; 86803

== ENCOUNTER 2022-11-03 18:05 | Inpatient (IN) | payer MEDICARE, BC ==
[2022-11-03 19:04] LABS: Lactic Acid, Venous 1.3 mmol/L (0.7-2.0)
[2022-11-03 19:05] LABS: ALT 18 U/L (4-34); African American GFR (CKD) >90 (>60 ml/min/1.73 sqM); Anion Gap 13 mmol/L; Blood Urea Nitrogen 12 mg/dL (7-17); Calcium 8.6 mg/dL (8.4-10.2); Carbon Dioxide 25 mmol/L (22-30); Chloride 87 mmol/L (98-107); Glucose 184 mg/dL (74-99); Non-African American GFR(CKD) >90 (>60 ml/min/1.73 sqM); Sodium 125 mmol/L (137-145); Total Bilirubin 1.1 mg/dL (0.2-1.3)
[2022-11-03 19:10] LABS: Basophils % (A) 0 %; Eosinophils # (A) 0.1 k/uL (0-0.7); Eosinophils % (A) 1 %; HCT 45.3 % (34.0-46.0); HGB 15.3 gm/dL (11.4-16.0); Lymphocytes # (A) 0.8 k/uL (1.0-4.8); Lymphocytes % (A) 7 %; MCH 28.7 pg (25.0-35.0); MCHC 33.7 g/dL (31.0-37.0); MCV 85.2 fL (80.0-100.0); Mean Platelet Volume 8.4; Monocytes # (A) 0.3 k/uL (0-1.0); Monocytes % (A) 3 %; Neutrophils # (A) 9.8 k/uL (1.3-7.7); Neutrophils % (A) 89 %; Platelet Count 227 k/uL (150-450); RBC 5.32 m/uL (3.80-5.40); RDW 14.5 % (11.5-15.5); WBC 11.1 k/uL (3.8-10.6)
--- NOTE | 2022-11-03 19:23 | ED ---
General Adult HPI - General Chief complaint: Altered Mental Status Stated complaint: Unresponsive Time Seen by Provider: 11/03/22 18:07 Source: EMS Mode of arrival: EMS Limitations: altered mental status - History of Present Illness Initial comments: Dictation was produced using [employer] dictation software. please excuse any grammatical, word or spelling errors. 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 History of Present Illness: Is a 77-year-old female she is a poor historian she presents emergency department for altered mental status. She is multiple comorbidities including diabetes, dyslipidemia and hypertension. Patient when she was seen at [facility] emergency Department 2 days ago after suffering a fall. She is discharged. Since to the ER for altered mental status. According to EMS patient has a fever and a rash on her face and torso. Unable to obtain ROS secondary to patient's mental status - Related Data Home Medications Medication Instructions Recorded Confirmed Albuterol Sulfate [Ventolin HFA] 2 puff INHALATION RT-Q4H PRN 05/04/14 11/04/22 Montelukast [Singulair] 10 mg PO HS 05/04/14 11/04/22 Atorvastatin [Lipitor] 40 mg PO DAILY 12/31/16 11/04/22 Acetaminophen Tab [Tylenol] 1,000 mg PO Q6HR PRN 11/03/22 11/04/22 Diclofenac Sodium Gel [Voltaren 1 applic TOPICAL QID PRN 11/03/22 11/04/22 Gel] Multivit-Min/Iron/Folic/Lutein 1 tab PO DAILY 11/03/22 11/04/22 [Centrum Silver Women Tablet] Acetaminophen/Diphenhydramine 1 tab PO HS 11/04/22 11/04/22 [Tylenol PM 500-25mg] Aspirin EC [Ecotrin Low Dose] 81 mg PO DAILY 11/04/22 11/04/22 Cholecalciferol [Vitamin D3 (25 50 mcg PO DAILY 11/04/22 11/04/22 Mcg = 1000 Iu)] Omeprazole [PriLOSEC] 20 mg PO DAILY 11/04/22 11/04/22 glipiZIDE [Glucotrol] 5 mg PO BID 11/04/22 11/04/22 Previous Rx's Medication Instructions Recorded Albuterol Nebulized [Ventolin 2.5 mg INHALATION RT-Q6H ml 11/07/22 Nebulized] Benzonatate [Tessalon Perle] 200 mg PO TID PRN #9 capsule 11/07/22 Enoxaparin [Lovenox] 40 mg SQ DAILY each 11/07/22 Gabapentin [Neurontin] 100 mg PO BID PRN #4 cap 11/07/22 INSULIN ASPART (NovoLOG) [NovoLOG 0 unit SQ ACHS each 11/07/22 (formulary)] Losartan [Cozaar] 50 mg PO DAILY tab 11/07/22 Magnesium Oxide [Mag-Ox] 400 mg PO BID #60 tablet 11/07/22 Metoprolol Succinate (ER) [Toprol 50 mg PO DAILY tab 11/07/22 XL] cefUROXime axetiL [Ceftin] 500 mg PO BID 7 Days #14 tab 11/07/22 Allergies Allergy/AdvReac Type Severity Reaction Status Date / Time adhesive Allergy Rash/Hives Verified 11/03/22 21:01 ciprofloxacin [From Cipro] Allergy Unknown Verified 11/03/22 21:01 ciprofloxacin HCl Allergy Unknown Verified 11/03/22 21:01 [From Cipro] enoxaparin sodium Allergy Dyspnea Verified 11/03/22 21:01 [From Lovenox] Iodinated Contrast Media Allergy Dyspnea Verified 11/03/22 21:01 [Iodinated Contrast Media - IV Dye] isosorbide mononitrate Allergy HEADACHES Verified 11/03/22 21:01 [From Imdur] naproxen Allergy Unknown Verified 11/03/22 21:01 niacin Allergy HOT FLASHES Verified 11/03/22 21:01 [From Niaspan Extended-Release] nickel Allergy Unknown Verified 11/03/22 21:01 nitrofurantoin Allergy Unknown Verified 11/03/22 21:01 [From Macrobid] nitrofurantoin Allergy Unknown Verified 11/03/22 21:01 macrocrystalline [From Macrobid] Penicillins Allergy Dyspnea Verified 11/03/22 21:01 tramadol Allergy Unknown Verified 11/03/22 21:01 meperidine HCl [From Demerol] AdvReac Unknown Verified 11/03/22 21:01 pioglitazone HCl [From Actos] AdvReac FLUID Verified 11/03/22 21:01 RETENTION prednisone AdvReac RAISES Verified 11/03/22 21:01 SUGAR LEVEL pregabalin [From Lyrica] AdvReac Swelling Verified 11/03/22 21:01 Review of Systems ROS Statement: Those systems with pertinent positive or pertinent negative responses have been documented in the HPI. ROS Other: All systems not noted in ROS Statement are negative. Past Medical History Past Medical History: Asthma, Diabetes Mellitus, Fibromyalgia, Hyperlipidemia, Hypertension, Thyroid Disorder Additional Past Medical History / Comment(s): hep A, anemia History of Any Multi-Drug Resistant Organisms: MRSA Date of last positivie culture/infection: 2007 MDRO Source:: right arm Past Surgical History: Back Surgery, Bladder Surgery, Cholecystectomy, Hysterectomy, Joint Replacement, Orthopedic Surgery, Tonsillectomy Additional Past Surgical History / Comment(s): ovarian cysts, angelina hip re placement,rt cataract,rt carotidendarectomy Past Anesthesia/Blood Transfusion Reactions: No Reported Reaction Additional Past Anesthesia/Blood Transfusion Reaction / Comment(s): no problems with prior blood transfusion Past Psychological History: No Psychological Hx Reported Past Alcohol Use History: None Reported Past Drug Use History: None Reported - Past Family History Father Family Medical History: Diabetes Mellitus, Myocardial Infarction ([place]) Mother Family Medical History: Diabetes Mellitus, Myocardial Infarction ([place]) Additional Family Medical History / Comment(s): from bleeding ulcers General Exam - General Exam Comments Initial Comments: PHYSICAL EXAM: General Impression: Alert and oriented x1/4, lethargic HEENT: Normocephalic atraumatic, extra-ocular movements intact, pupils equal and reactive to light bilaterally, mucous membranes moist, no mucosal abnormalities, no petechiae to the soft palate Cardiovascular: Heart regular rate and rhythm Chest: Able to complete full sentences, no retractions, no tachypnea Abdomen: abdomen soft, non-tender, non-distended, no organomegaly Musculoskeletal: Pulses present and equal in all extremities, no peripheral edema Motor: no focal deficits noted Neurological: CN II-XII grossly intact, no focal motor or sensory deficits noted Skin: Diffuse petechial rash to the lower extremities Limitations: altered mental status Course Vital Signs 11/03/22 11/03/22 11/03/22 18:11 21:16 22:53 Temperature 100.0 F H Pulse Rate 122 H 104 H 79 Respiratory 18 20 20 Rate Blood Pressure 186/114 162/113 154/80 O2 Sat by Pulse 95 96 95 Oximetry 11/04/22 11/04/22 11/04/22 01:57 04:59 06:26 Temperature 98.6 F Pulse Rate 81 90 85 Respiratory 18 20 20 Rate Blood Pressure 131/82 137/77 137/83 O2 Sat by Pulse 99 98 96 Oximetry EKG Findings - EKG Comments: EKG Findings:: My EKG interpretation: Ventricular rate 123, sinus tachycardia,. 171, QRS 91, QTC 391. No TX prolongation, no QTC prolongation, . No EKG for comparison. Overall, this EKG is nonspecific Procedures - Sepsis Sepsis Focused Exam #1 Time Sepsis Criteria Met: : Sepsis Focused Exam Date: 11/03/22 Sepsis Focused Exam Time: Sepsis Focused Exam Complete: Yes Vital Signs & RN Notes Reviewed: Yes Capillary Refill: < 2 Seconds: Fingers, Toes Peripheral Pulses: Normal: Radial (R), Radial (L), Posterior Tibialis (R), Posterior Tibialis (L), Dorsalis Pedis (R), Dorsalis Pedis (L) Skin Color: Normal for Patient Respiratory Exam: normal lung sounds Cardiovascular Exam: tachycardia Medical Decision Making - Medical Decision Making Was pt. sent in by a medical professional or institution (, PA, SOLARIS ADMINISTRATOR, urgent care, hospital, or senior living...) When possible be specific @ -No Did you speak to anyone other than the patient for history (EMS, parent, family, police, friend...)? What history was obtained from this source @ -Spoke with granddaughter, daughter and who feel that patient seems to be off her baseline Did you review nursing and triage notes (agree or disagree)? Why? @ -I reviewed and agree with nursing and triage notes Were old charts reviewed (outside hosp., previous admission, EMS record, old EKG, old radiological studies, urgent care reports/EKG's, senior living records)? Report findings @ -No old charts were reviewed Differential Diagnosis (chest pain, altered mental status, abdominal pain women, abdominal pain men, vaginal bleeding, musculoskeletal, weakness, fever, dyspnea, syncope, headache, dizziness, GI bleed, back pain, seizure, CVA, palpatations, mental health)? @ -Differential Fever: Pneumonia, viral URI, endocarditis, myocarditis, pericarditis, otitis, sinusiti s, peritonsillar Abscess, retropharyngeal Abscess, epiglottitis, peritonitis, appendicitis, Yolanda cystitis, diverticulitis, hepatitis, colitis, UTI, PID, TOA, pyelonephritis, prostatitis, epididymitis, meningitis, encephalitis, pulmonary embolism, CVA, thyroid storm, pancreatitis, adrenal crisis, cavernous sinus thrombosis, this is not meant to be an all-inclusive list. EKG interpreted by me (3pts min.). @ -See above X-rays interpreted by me (1pt min.). @ -As x-ray is nonacute CT interpreted by me (1pt min.). @ -Scan of the abdomen and pelvis with contrast shows no acute processes. Computed tomography scan of the head and C-spine shows no acute processes U/S interpreted by me (1pt. min.). @ -None done What testing was considered but not performed or refused? (CT, X-rays, U/S, labs)? Why? @ -None What meds were considered but not given or refused? Why? @ -None Did you discuss the management of the patient with other professionals (professionals i.e. , PA, SOLARIS ADMINISTRATOR, lab, RT, psych nurse, secondary social studies teacher, mechanical service technician, teacher, fisheries enforcement officer, test case developer)? Give summary @ -Case discussed with Dr. Ocasio for admission. She was related information regarding her clinical presentation labs and imaging studies Was smoking cessation discussed for >3mins.? @ -No Was critical care preformed (if so, how long)? @ -No Were there social determinants of health that impacted care today? How? (Homelessness, low income, unemployed, alcoholism, drug addiction, transportation, low edu. Level, literacy, decrease access to med. care, residential, rehab)? @ -No Was there de-escalation of care discussed even if they declined (Discuss DNR or withdrawal of care, Hospice)? DNR status @ -No What co-morbidities impacted this encounter? (DM, HTN, Smoking, COPD, CAD, Cancer, CVA, ARF, Chemo, Hep., AIDS, mental health diagnosis, sleep apnea, morbid obesity)? @ -None Was patient admitted / discharged? Hospital course, mention meds given and route, prescriptions, significant lab abnormalities, going to OR and other pertinent info. @ -77-year-old female presents to the emergency department for lethargy and altered mental status. Some clear per family when patient was last normal period patient does not have any obvious focal findings. She is generally weak and lethargic. Patient had low-grade temperature heart rate of 122 initially. Rest of vital signs unremarkable. Laboratory evaluation obtained. CBC unremarkable. Coag panel is negative. Sodium is 125. Troponin elevated 063. Urinalysis positive for urinary tract infection. At this point no obvious source of infection. Pending viral panel. Serum broad-spectrum antibiotics. Will be admitted with consultation to infectious disease. Undiagnosed new problem with uncertain prognosis? @ -No Drug Therapy requiring intensive monitoring for toxicity (Heparin, Nitro, Insulin, Cardizem)? @ -No Were any procedures done? @ -No Diagnosis/symptom? Acute, or Chronic, or Acute on Chronic? Uncomplicated ( without systemic symptoms) or Complicated (systemic symptoms)? @ -1. SIRS Side effects of treatment? @ -No Exacerbation, Progression, or Severe Exacerbation? @ -No Poses a threat to life or bodily function? How? (Chest pain, [place], LA, pneumonia, PE, COPD, DKA, ARF, appy, cholecystitis, CVA, Diverticulitis, Homicidal, Suicidal, threat to staff... and all critical care pts) @ -yes - Lab Data Result diagrams: 11/05/22 07:11 11/07/22 07:04 Lab Results 11/03/22 11/03/22 11/03/22 Range/Units 18:47 18:47 18:47 WBC 11.1 H (3.8-10.6) k/uL RBC 5.32 (3.80-5.40) m/uL Hgb 15.3 (11.4-16.0) gm/dL Hct 45.3 (34.0-46.0) % MCV 85.2 (80.0-100.0) fL MCH 28.7 (25.0-35.0) pg MCHC 33.7 (31.0-37.0) g/dL RDW 14.5 (11.5-15.5) % Plt Count 227 (150-450) k/uL MPV 8.4 Neutrophils % 89 % Lymphocytes % 7 % Monocytes % 3 % Eosinophils % 1 % Basophils % 0 % Neutrophils # 9.8 H (1.3-7.7) k/uL Lymphocytes # 0.8 L (1.0-4.8) k/uL Monocytes # 0.3 (0-1.0) k/uL Eosinophils # 0.1 (0-0.7) k/uL Basophils # 0.0 (0-0.2) k/uL PT 11.2 (9.0-12.0) sec INR 1.1 (<1.2) APTT 24.2 (22.0-30.0) sec Sodium (137-145) mmol/L Potassium (3.5-5.1) mmol/L Chloride (98-107) mmol/L Carbon Dioxide (22-30) mmol/L Anion Gap mmol/L BUN (7-17) mg/dL Creatinine (0.52-1.04) mg/dL Est GFR (CKD-EPI)AfAm (>60 ml/min/1.73 sqM) Est GFR (CKD-EPI)NonAf (>60 ml/min/1.73 sqM) Glucose (74-99) mg/dL Plasma Lactic Acid Rajeev 1.3 (0.7-2.0) mmol/L Calcium (8.4-10.2) mg/dL Magnesium (1.6-2.3) mg/dL Total Bilirubin (0.2-1.3) mg/dL AST (14-36) U/L ALT (4-34) U/L Alkaline Phosphatase (38-126) U/L Ammonia <9 (<30) umol/L Troponin I (0.000-0.034) ng/mL Total Protein (6.3-8.2) g/dL Albumin (3.5-5.0) g/dL Urine Color Urine Appearance (Clear) Urine pH (5.0-8.0) Ur Specific [place] (1.001-1.035) Urine Protein (Negative) Urine Glucose (UA) (Negative) Urine Ketones (Negative) Urine Blood (Negative) Urine Nitrite (Negative) Urine Bilirubin (Negative) Urine Urobilinogen (<2.0) mg/dL Ur Leukocyte Esterase (Negative) Urine RBC (0-5) /hpf Urine WBC (0-5) /hpf Ur Squamous Epith Cells (0-4) /hpf Urine Bacteria (None) /hpf Hyaline Casts (0-2) /lpf Urine Mucus (None) /hpf 11/03/22 11/03/22 11/03/22 Range/Units 18:47 18:47 18:47 WBC (3.8-10.6) k/uL RBC (3.80-5.40) m/uL Hgb (11.4-16.0) gm/dL Hct (34.0-46.0) % MCV (80.0-100.0) fL MCH (25.0-35.0) pg MCHC (31.0-37.0) g/dL RDW (11.5-15.5) % Plt Count (150-450) k/uL MPV Neutrophils % % Lymphocytes % % Monocytes % % Eosinophils % % Basophils % % Neutrophils # (1.3-7.7) k/uL Lymphocytes # (1.0-4.8) k/uL Monocytes # (0-1.0) k/uL Eosinophils # (0-0.7) k/uL Basophils # (0-0.2) k/uL PT (9.0-12.0) sec INR (<1.2) APTT (22.0-30.0) sec Sodium 125 L (137-145) mmol/L Potassium 4.1 (3.5-5.1) mmol/L Chloride 87 L (98-107) mmol/L Carbon Dioxide 25 (22-30) mmol/L Anion Gap 13 mmol/L BUN 12 (7-17) mg/dL Creatinine 0.49 L (0.52-1.04) mg/dL Est GFR (CKD-EPI)AfAm >90 (>60 ml/min/1.73 sqM) Est GFR (CKD-EPI)NonAf >90 (>60 ml/min/1.73 sqM) Glucose 184 H (74-99) mg/dL Plasma Lactic Acid Rajeev (0.7-2.0) mmol/L Calcium 8.6 (8.4-10.2) mg/dL Magnesium 1.2 L (1.6-2.3) mg/dL Total Bilirubin 1.1 (0.2-1.3) mg/dL AST 30 (14-36) U/L ALT 18 (4-34) U/L Alkaline Phosphatase 57 (38-126) U/L Ammonia (<30) umol/L Troponin I 0.063 H* (0.000-0.034) ng/mL Total Protein 7.7 (6.3-8.2) g/dL Albumin 4.5 (3.5-5.0) g/dL Urine Color Light Yellow Urine Appearance Clear (Clear) Urine pH 6.5 (5.0-8.0) Ur Specific [place] 1.012 (1.001-1.035) Urine Protein 2+ H (Negative) Urine Glucose (UA) 2+ H (Negative) Urine Ketones 3+ H (Negative) Urine Blood Trace H (Negative) Urine Nitrite Negative (Negative) Urine Bilirubin Negative (Negative) Urine Urobilinogen <2.0 (<2.0) mg/dL Ur Leukocyte Esterase Trace H (Negative) Urine RBC 1 (0-5) /hpf Urine WBC 10 H (0-5) /hpf Ur Squamous Epith Cells 1 (0-4) /hpf Urine Bacteria Rare H (None) /hpf Hyaline Casts 1 (0-2) /lpf Urine Mucus Rare H (None) /hpf Disposition Clinical Impression: AMS (altered mental status) Disposition: ADMITTED IP TO THIS HOSP
[2022-11-03] MEDS ORDERED: ACETAMINOPHEN IV (For NPO) 1,000 MG in EMPTY BAG 1 BAG IVPB STA (19:24)
[2022-11-03 19:27] LABS: AST 30 U/L (14-36); Albumin 4.5 g/dL (3.5-5.0); Alkaline Phosphatase 57 U/L (38-126); Magnesium 1.2 mg/dL (1.6-2.3); Potassium 4.1 mmol/L (3.5-5.1); Total Protein 7.7 g/dL (6.3-8.2)
[2022-11-03 19:30] LABS: INR 1.1 (<1.2); Partial Thromboplastin Time 24.2 sec (22.0-30.0); Prothrombin Time 11.2 sec (9.0-12.0)
[2022-11-03] MEDS ORDERED: CEFEPIME 2 GM in SODIUM CHLORIDE 0.9% 100 ML IVPB STA (19:31)
[2022-11-03] MEDS ORDERED: VANCOMYCIN IV PER PHARMACY 1 EACH MISC MISCELLANE PRN (19:32)
--- NOTE | 2022-11-03 19:35 | CT ---
EXAMINATION TYPE: CT brain cspine wo con CT DLP: 1352.5 mGycm, Automated exposure control for dose reduction was used. DATE OF EXAM: 11/03/2022 7:29 PM COMPARISON: 07/07/2017 CLINICAL INDICATION:Female, 77 years old with history of ams; AMS TECHNIQUE: Brain: Multiple axial CT images of the brain were obtained without IV contrast. Cspine: Axial CT images from the skull base to the inferior aspect of T2 we obtained without intraven ous contrast. Coronal and sagittal reformatted images were also reviewed. FINDINGS: Brain: Extra-axial spaces: No abnormal extra-axial fluid collections. Ventricular system: Dilatation in proportion to cerebral atrophy. Cerebral parenchyma: Cerebral atrophy. No acute intraparenchymal hemorrhage or mass effect. The chin -white junction is well differentiated. Nonspecific periventricular white matter changes particularly in the right frontal lobe holguin radiata remote left basal ganglia injury. Cerebellum: Unremarkable. Mass effect: No evidence of midline shift. Intracranial vasculature: Atherosclerotic calcifications of the intracranial vessels. Soft tissues: Normal. Calvarium/osseous structures: No depressed skull fracture. Paranasal sinuses and mastoid air cells: Clear. Visualized orbits: Bilateral aphakia Cervical spine: Fracture: None. Osseous structures: Post fixation changes to C5-C6. Multilevel degenerative disc disease changes with endplate spurring and disc osteophyte complex's. Vertebral alignment: Within normal limits. Spinal canal/Neural Foramina: No evidence of significant spinal canal narrowing. No evidence for sign ificant neural foraminal stenosis. Neck soft tissues: Prevertebral soft tissues are within normal limits. Other: The airway is patent. The lung apices are clear. Right partially calcified thyroid nodule. IMPRESSION: 1. No acute intracranial process. 2. No evidence of cervical spine fracture. 3. Moderate multilevel degenerative disc disease. 4. Post fixation changes hardware appears intact and in appropriate position.
[2022-11-03] MEDS ORDERED: diphenhydrAMINE 50 MG/ML 1 ML VIAL IVP STA (19:49)
[2022-11-03] MEDS ORDERED: methylPREDNISolone SOD SUCCI 125 MG/2 ML VIAL IV STA (19:49)
[2022-11-03] MEDS ORDERED: FAMOTIDINE 20 MG/2 ML VIAL IV STA (19:49)
[2022-11-03 19:52] LABS: Appearance,Urine Clear (Clear); Bacteria,Urine Rare /hpf; Bilirubin,Urine Negative (Negative); Blood,Urine Trace (Negative); Color,Urine Light Yellow; Glucose,Urine (UA) 2+ (Negative); Hyaline Casts,Urine 1 /lpf (0-2); Leukocyte Esterase,Urine Trace (Negative); Mucus,Urine Rare /hpf; Nitrite,Urine Negative (Negative); PH, Urine 6.5 (5.0-8.0); Protein,Urine 2+ (Negative); RBC,Urine 1 /hpf (0-5); Specific Gravity,Urine 1.012 (1.001-1.035); Squamous Epithelial Cell,Urine 1 /hpf (0-4); Urobilinogen,Urine <2.0 mg/dL (<2.0); WBC,Urine 10 /hpf (0-5)
[2022-11-03] MEDS ORDERED: VANCOMYCIN 1,000 MG in SODIUM CHLORIDE 0.9% 250 ML IVPB SCH (20:00)
[2022-11-03 20:01] LABS: Ketones,Urine 3+ (Negative)
--- NOTE | 2022-11-03 20:50 | XR ---
EXAMINATION TYPE: XR chest 2V DATE OF EXAM: 11/03/2022 8:39 PM COMPARISON: Chest radiographs from 07/08/2018 TECHNIQUE: XR chest 2V Frontal and lateral views of the chest. CLINICAL INDICATION:Female, 77 years old with history of fever, ams; FINDINGS: Lungs/Pleura: There is no evidence of pleural effusion, focal consolidation, or pneumothorax. Pulmonary vascularity: Unremarkable. Heart/mediastinum: Cardiomediastinal silhouette is unremarkable. Atherosclerotic calcifications are seen in the aorta. Musculoskeletal: No acute osseous pathology. There is fixation hardware in the lower cervical spine. IMPRESSION: No acute cardiopulmonary disease/process.
--- NOTE | 2022-11-03 21:03 | CT ---
EXAMINATION TYPE: CT abdomen pelvis w con CT DLP: 1258.4 mGycm, Automated exposure control for dose reduction was used. DATE OF EXAM: 11/03/2022 8:34 PM COMPARISON: CT spine 08/14/2015 CLINICAL INDICATION:Female, 77 years old with history of fever, ams, flank pain; fever, AMS, abd pain . TECHNIQUE: Axial CT of the abdomen and pelvis. Sagittal and coronal reformats were created on a [employer] workstation. 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 Severe coronary artery calcificati ons and aortic valve leaflet calcifications. ABDOMEN LIVER: Unremarkable GALLBLADDER AND BILE DUCTS: Cholecystectomy clips are present. PANCREAS: Unremarkable. SPLEEN: Unremarkable. ADRENAL GLANDS: Unremarkable. KIDNEYS AND URETERS: No evidence of hydronephrosis or renal calculus. Right renal cysts measuring up to 3.6 cm. PELVIS Limited evaluation of the pelvis secondary to streak artifact. BLADDER: Nondistended with Montaño catheter in place. REPRODUCTIVE: Unremarkable. ABDOMEN & PELVIS STOMACH AND BOWEL: No evidence of bowel obstruction. PERITONEUM/RETROPERITONEUM: No evidence of pneumoperitoneum or free fluid. VASCULATURE: No evidence of aortic aneurysm. MUSCULOSKELETAL: No acute osseous abnormalities, bilateral hip arthroplasty changes. Hardware appears intact. LYMPH NODES: No gross evidence for lymphadenopathy. SOFT TISSUE/ABDOMINAL WALL: Left lower abdominal wall lipoma measuring up to 47 x 18 mm IMPRESSION: 1. No evidence for infectious process within the abdomen or pelvis. 2. Montaño catheter in place correlate with urinalysis for cystitis. 3. 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 4. Severe coronary artery atherosclerosis and aortic valve leaflet calcifications.
[2022-11-03] MEDS ORDERED: ACETAMINOPHEN TAB 325 MG TAB PO PRN (21:06)
[2022-11-03] MEDS ORDERED: NALOXONE 0.4 MG/ML 1 ML VIAL IV PRN (21:06)
[2022-11-03] MEDS: SODIUM CHLORIDE 0.9% 1,000 ML IV SCH (21:09)
[2022-11-03] MEDS: MAGNESIUM SULFATE-D5W PMX 1 GM in DEXTROSE/WATER 1 100ML.BAG IVPB SCH (22:03)
[2022-11-04] MEDS: SODIUM CHLORIDE 0.9% 1,000 ML IV SCH ×2 (04:56→13:40)
[2022-11-04 07:50] LABS: African American GFR (CKD) >90 (>60 ml/min/1.73 sqM); Non-African American GFR(CKD) 89 (>60 ml/min/1.73 sqM)
[2022-11-04] MEDS ORDERED: DICLOFENAC SODIUM GEL 100 GM TUBE TOPICAL PRN (09:22)
[2022-11-04] MEDS ORDERED: VANCOMYCIN 1,000 MG in SODIUM CHLORIDE 0.9% 250 ML IVPB SCH (10:00)
[2022-11-04] MEDS: MAGNESIUM SULFATE-D5W PMX 1 GM in DEXTROSE/WATER 1 100ML.BAG IVPB SCH ×3 (10:33→17:17)
--- NOTE | 2022-11-04 11:00 | P.HPIM ---
History of Present Illness Patient is a pleasant 77-year-old female was brought in with complaints of generalized weakness as per the admission note as patient has altered mental status with the such complaints or denied to me by patient and family members patient is alert oriented 3 mental status is at her baseline. There is a concern that patient may have had slurred speech although CT of the head did not show any significant abnormality and patient had previous history of stroke is on Lipitor. Patient is found to be hyponatremic upon further cushioning patient had diarrhea for 2 weeks and she does admit to suprapubic pain and dysuria although patient doesn't have any specific tenderness urine analysis is not significantly abnormal but mildly abnormal. Patient has mildly elevated troponin of 0.063 leukocytosis of 11.1 and a fever of 100.3. Patient doesn't have any obvious cellulitis or rash because of which Vanco mycin was discontinued patient was given a dose of vancomycin and cefepime. Patient doesn't have any obvious weakness patient is also hypomagnesemia REVIEW OF SYSTEMS: CONSTITUTIONAL: No fever. HEENT: No recent visual problems or hearing problems. Denied any sore throat. CARDIOVASCULAR: No chest pain, orthopnea, PND, no palpitations, no syncope. PULMONARY: No shortness of breath, no cough, no hemoptysis. GASTROINTESTINAL: No diarrhea, no nausea, no vomiting, no abdominal pain. NEUROLOGICAL: No headaches, no weakness, no numbness. HEMATOLOGICAL: Denies any bleeding or petechiae. GENITOURINARY: Denies any burning micturition, frequency, or urgency. MUSCULOSKELETAL/RHEUMATOLOGICAL: Denies any joint pain, swelling, or any muscle pain. ENDOCRINE: Denies any polyuria or polydipsia. The rest of the 14-point review of systems is negative. PHYSICAL EXAMINATION: GENERAL: The patient is alert and oriented x3, not in any acute distress. Well developed, well nourished. HEENT: Pupils are round and equally reacting to light. EOMI. No scleral icterus. No conjunctival pallor. Normocephalic, atraumatic. No pharyngeal erythema. No thyromegaly. CARDIOVASCULAR: S1 and S2 present. No murmurs, rubs, or gallops. PULMONARY: Chest is clear to auscultation, no wheezing or crackles. ABDOMEN: Soft, nontender, nondistended, normoactive bowel sounds. No palpable organomegaly. MUSCULOSKELETAL: No joint swelling or deformity. EXTREMITIES: No cyanosis, clubbing, or pedal edema. NEUROLOGICAL: Gross neurological examination did not reveal any focal deficits. Does have generalized weakness SKIN: No rashes. Assessment and plan -Generalized weakness and fatigue: Secondary to hyponatremia which is again se condary to diarrhea patient denied any recent diuretic use patient will be started on IV fluids. Patient does have symptoms of dysuria although urine analysis is not that significant for urinary tract infection for now will start on antibiotics we will monitor her response. -Sepsis: Secondary to possibility of urinary tract infection. Blood cultures are pending -Mildly elevated troponin secondary to sepsis we'll repeat troponin sent in the troponins -Diarrhea: Probably infectious or inflammatory diarrhea -Hypovolemic hyponatremia: Secondary to diarrhea: IV fluids as mentioned above next and-hypomagnesemia: Secondary to diarrhea and will be replaced. -type 2 diabetes mellitus hold off on her home regimen patient will be on sliding scale insulin -Hyperlipidemia -Hypertension -Hyperthyroidism -DVT prophylaxis: Lovenox Past Medical History Past Medical History: Asthma, Diabetes Mellitus, Fibromyalgia, Hyperlipidemia, Hypertension, Thyroid Disorder Additional Past Medical History / Comment(s): hep A, anemia History of Any Multi-Drug Resistant Organisms: MRSA Date of last positivie culture/infection: 2007 MDRO Source:: right arm Past Surgical History: Back Surgery, Bladder Surgery, Cholecystectomy, Hysterectomy, Joint Replacement, Orthopedic Surgery, Tonsillectomy Additional Past Surgical History / Comment(s): ovarian cysts, angelina hip replacement,rt cataract,rt carotidendarectomy Past Anesthesia/Blood Transfusion Reactions: No Reported Reaction Additional Past Anesthesia/Blood Transfusion Reaction / Comment(s): no problems with prior blood transfusion Past Psychological History: No Psychological Hx Reported Past Alcohol Use History: None Reported Past Drug Use History: None Reported Medications and Allergies Home Medications Medication Instructions Recorded Confirmed Type Albuterol Sulfate [Ventolin HFA] 2 puff INHALATION RT-Q4H PRN 05/04/14 11/04/22 History Montelukast [Singulair] 10 mg PO HS 05/04/14 11/04/22 History metFORMIN HCL 500 - 1,000 mg PO BID 05/04/14 11/04/22 History Atorvastatin [Lipitor] 40 mg PO DAILY 12/31/16 11/04/22 History Acetaminophen Tab [Tylenol Tab] 1,000 mg PO Q6HR PRN 11/03/22 11/04/22 History Diclofenac Sodium Gel [Voltaren 1 applic TOPICAL QID PRN 11/03/22 11/04/22 History Gel] Gabapentin [Neurontin] 100 mg PO BID PRN 11/03/22 11/04/22 History Isosorbide Mononitrate ER [Imdur] 30 mg PO DAILY 11/03/22 11/04/22 History Metoprolol Succinate [Metoprolol 12.5 mg PO HS 11/03/22 11/04/22 History Succinate ER] Multivit-Min/Iron/Folic/Lutein 1 tab PO DAILY 11/03/22 11/04/22 History [Centrum Silver Women Tablet] Acetaminophen/Diphenhydramine 1 tab PO HS 11/04/22 11/04/22 History [Tylenol PM 500-25mg] Aspirin EC [Ecotrin Low Dose] 81 mg PO DAILY 11/04/22 11/04/22 History Cholecalciferol [Vitamin D3 (25 50 mcg PO DAILY 11/04/22 11/04/22 History Mcg = 1000 Iu)] Magnesium Chloride [Mag64] 128 mg PO HS 11/04/22 11/04/22 History Omeprazole [PriLOSEC] 20 mg PO DAILY 11/04/22 11/04/22 History glipiZIDE [Glucotrol] 5 mg PO BID 11/04/22 11/04/22 History Allergies Allergy/AdvReac Type Severity Reaction Status Date / Time adhesive Allergy Rash/Hives Verified 11/03/22 21:01 ciprofloxacin [From Cipro] Allergy Unknown Verified 11/03/22 21:01 ciprofloxacin HCl Allergy Unknown Verified 11/03/22 21:01 [From Cipro] enoxaparin sodium Allergy Dyspnea Verified 11/03/22 21:01 [From Lovenox] Iodinated Contrast Media Allergy Dyspnea Verified 11/03/22 21:01 [Iodinated Contrast Media - IV Dye] isosorbide mononitrate Allergy HEADACHES Verified 11/03/22 21:01 [From Imdur] naproxen Allergy Unknown Verified 11/03/22 21:01 niacin Allergy HOT FLASHES Verified 11/03/22 21:01 [From Niaspan Extended-Release] nickel Allergy Unknown Verified 11/03/22 21:01 nitrofurantoin Allergy Unknown Verified 11/03/22 21:01 [From Macrobid] nitrofurantoin Allergy Unknown Verified 11/03/22 21:01 macrocrystalline [From Macrobid] Penicillins Allergy Dyspnea Verified 11/03/22 21:01 tramadol Allergy Unknown Verified 11/03/22 21:01 meperidine HCl [From Demerol] AdvReac Unknown Verified 11/03/22 21:01 pioglitazone HCl [From Actos] AdvReac FLUID Verified 11/03/22 21:01 RETENTION prednisone AdvReac RAISES Verified 11/03/22 21:01 SUGAR LEVEL pregabalin [From Lyrica] AdvReac Swelling Verified 11/03/22 21:01 Physical Exam Vitals: Vital Signs Temp Pulse Resp BP Pulse Ox 11/04/22 06:26 85 20 137/83 96 11/04/22 04:59 98.6 F 90 20 137/77 98 11/04/22 01:57 81 18 131/82 99 11/03/22 22:53 79 20 154/80 95 11/03/22 21:16 104 H 20 162/113 96 11/03/22 18:11 100.0 F H 122 H 18 186/114 95 Intake and Output 11/03/22 11/04/22 11/04/22 22:59 06:59 14:59 Other: Weight 58.967 kg Results CBC & Chem 7: 11/03/22 18:47 11/04/22 07:02 Labs: Abnormal Lab Results - Last 24 Hours (Table) 11/03/22 11/03/22 11/03/22 Range/Units 18:47 18:47 18:47 WBC 11.1 H (3.8-10.6) k/uL Neutrophils # 9.8 H (1.3-7.7) k/uL Lymphocytes # 0.8 L (1.0-4.8) k/uL Sodium 125 L (137-145) mmol/L Chloride 87 L (98-107) mmol/L Creatinine 0.49 L (0.52-1.04) mg/dL Glucose 184 H (74-99) mg/dL Magnesium 1.2 L (1.6-2.3) mg/dL Troponin I (0.000-0.034) ng/mL Urine Protein 2+ H (Negative) Urine Glucose (UA) 2+ H (Negative) Urine Ketones 3+ H (Negative) Urine Blood Trace H (Negative) Ur Leukocyte Esterase Trace H (Negative) Urine WBC 10 H (0-5) /hpf Urine Bacteria Rare H (None) /hpf Urine Mucus Rare H (None) /hpf 11/03/22 Range/Units 18:47 WBC (3.8-10.6) k/uL Neutrophils # (1.3-7.7) k/uL Lymphocytes # (1.0-4.8) k/uL Sodium (137-145) mmol/L Chloride (98-107) mmol/L Creatinine (0.52-1.04) mg/dL Glucose (74-99) mg/dL Magnesium (1.6-2.3) mg/dL Troponin I 0.063 H* (0.000-0.034) ng/mL Urine Protein (Negative) Urine Glucose (UA) (Negative) Urine Ketones (Negative) Urine Blood (Negative) Ur Leukocyte Esterase (Negative) Urine WBC (0-5) /hpf Urine Bacteria (None) /hpf Urine Mucus (None) /hpf
[2022-11-04 12:48] LABS: Glucose,Whole Blood 257 mg/dL (70-110)
[2022-11-04] MEDS: INSULIN ASPART (NovoLOG) 100 UNIT/ML VIAL SQ SCH ×3 (12:51→19:59)
[2022-11-04 16:35] LABS: Glucose,Whole Blood 249 mg/dL (70-110)
[2022-11-04 19:54] LABS: Glucose,Whole Blood 264 mg/dL (70-110)
[2022-11-04] MEDS: MONTELUKAST 10 MG TAB PO SCH (19:59)
[2022-11-04] MEDS: ACETAMINOPHEN TAB 500 MG TAB PO PRN (19:59)
[2022-11-04] MEDS: ASPIRIN 81 MG PO SCH (19:59)
--- NOTE | 2022-11-04 20:30 | US ---
EXAMINATION TYPE: US carotid duplex BILAT DATE OF EXAM: 11/04/2022 COMPARISON: NONE CLINICAL INDICATION: Female, 77 years old with history of Syncope, unresponsive episode; syncope. Pt states she had an endarterectomy on the right side in 2000. TECHNIQUE: Carotid duplex ultrasound examination. Indirect Doppler criteria was utilized. FINDINGS: EXAM MEASUREMENTS: RIGHT: Peak Systolic Velocity (PSV) cm/sec ----- Right CCA: 54.8 ----- Right ICA: 107.3 ----- Right ECA: 124.2 ICA/CCA ratio: 2.0 RIGHT: End Diastole cm/sec ----- Right CCA: 12.0 ----- Right ICA: 24.5 ----- Right ECA: 19.2 LEFT: Peak Systolic Velocity (PSV) cm/sec ----- Left CCA: 79.2 ----- Left ICA: 79.2 ----- Left ECA: 169.4 ICA/CCA ratio: 1.0 LEFT: End Diastole cm/sec ----- Left CCA: 18.4 ----- Left ICA: 15.7 ----- Left ECA: 20.7 VERTEBRALS (direction of flow): Right Vertebral: Antegrade Left Vertebral: Antegrade Rhythm: Normal [employer] DEVELOPER NOTES: Mild plaque seen in right bulb and prox ICA. Moderate amount of plaque seen throug hout left CCA, bulb, and prox ICA. IMPRESSION: Less than 50% stenosis of the bilateral carotid bifurcations. Criteria for Assigning % of Stenosis / Diameter reduction (Estimation based on the indirect measurements of the internal carotid artery velocities (ICA PSV). 1. Normal (no stenosis)=ICA PSV < 125 cm/s: ratio < 2.0: ICA EDV<40 cm/s. 2. Less than 50% stenosis=ICA PSV < 125 cm/s: ratio < 2.0: ICA EDV<40 cm/s. 3. 50 to 69% stenosis=ICA PSV of 125 to 230 cm/s: ration 2.0 ? 4.0: ICA EDV 40-100 cm/s. 4. Greater than 70% stenosis to near occlusion= ICA PSV > 230 cm/s: ratio > 4.0: ICA EDV > 100 cm/s. 5. Near occlusion= ICA PSV velocities may be low or undetectable: variable ratio and ICA EDV. 6. Total occlusion=unable to detect flow.
--- NOTE | 2022-11-04 21:46 | P.CONS ---
History of Present Illness - Reason for Consult Consult date: 11/04/22 SIRS/sepsis Requesting physician: Car Anderson - Chief Complaint Weakness and diarrhea x few days - History of Present Illness Patient is a 77-year-old female with a past medical histoy significant for diabetes mellitus hypertension hyperlipidemia has been brought into the ER last evening for evaluation of mental status changes, The patient recently did have a fall and was evaluated at outside facility ER with the patient was evaluated subsequently discharged home patient has been complaining of diarrhea that has been going on for about 2 weeks now patient denies having any blood or mucus in the stool and did have multiple loose stools no abdominal pain no nausea no vomiting patient denies having any headache or URI symptoms no chest pain shortness of breath occasional cough and did have mild urinary symptoms on presentation to hospital patient did have a low-grade fever of 100 F patient did tested negative for influenza RSV and COVID creatinine has been normal white count was 11.1 with a left shift creatinine was normal liver isms are normal urine has been mildly positive patient did have a chest x-ray no acute cardiopulmonary disease of process patient did have a CT of abdominal pelvis no evidence for infectious process concerning for possible cystitis patient was started on Rocephin infectious disease was consulted for further management of antibiotic therapy she did receive vancomycin in the ER as well Review of Systems Positive point and negatives has been mentioned in the HPI, complete review of systems was performed and all other systems are negative Past Medical History Past Medical History: Asthma, Diabetes Mellitus, Fibromyalgia, Hyperlipidemia, Hypertension, Thyroid Disorder Additional Past Medical History / Comment(s): hep A, anemia History of Any Multi-Drug Resistant Organisms: MRSA Year Discovered:: 2007 MDRO Source:: right arm Past Surgical History: Back Surgery, Bladder Surgery, Cholecystectomy, Hysterectomy, Joint Replacement, Orthopedic Surgery, Tonsillectomy Additional Past Surgical History / Comment(s): ovarian cysts, angelina hip replacement,rt cataract,rt carotidendarectomy Past Anesthesia/Blood Transfusion Reactions: No Reported Reaction Additional Past Anesthesia/Blood Transfusion Reaction / Comm: no problems with prior blood transfusion Past Psychological History: No Psychological Hx Reported Past Alcohol Use History: None Reported Past Drug Use History: None Reported - Past Family History Father Family Medical History: Diabetes Mellitus, Myocardial Infarction ([place]) Mother Family Medical History: Diabetes Mellitus, Myocardial Infarction ([place]) Additional Family Medical History / Comment(s): from bleeding ulcers Medications and Allergies Home Medications Medication Instructions Recorded Confirmed Type Albuterol Sulfate [Ventolin HFA] 2 puff INHALATION RT-Q4H PRN 05/04/14 11/04/22 History Montelukast [Singulair] 10 mg PO HS 05/04/14 11/04/22 History Atorvastatin [Lipitor] 40 mg PO DAILY 12/31/16 11/04/22 History Acetaminophen Tab [Tylenol] 1,000 mg PO Q6HR PRN 11/03/22 11/04/22 History Diclofenac Sodium Gel [Voltaren 1 applic TOPICAL QID PRN 11/03/22 11/04/22 History Gel] Multivit-Min/Iron/Folic/Lutein 1 tab PO DAILY 11/03/22 11/04/22 History [Centrum Silver Women Tablet] Acetaminophen/Diphenhydramine 1 tab PO HS 11/04/22 11/04/22 History [Tylenol PM 500-25mg] Aspirin EC [Ecotrin Low Dose] 81 mg PO DAILY 11/04/22 11/04/22 History Cholecalciferol [Vitamin D3 (25 50 mcg PO DAILY 11/04/22 11/04/22 History Mcg = 1000 Iu)] Omeprazole [PriLOSEC] 20 mg PO DAILY 11/04/22 11/04/22 History glipiZIDE [Glucotrol] 5 mg PO BID 11/04/22 11/04/22 History Albuterol Nebulized [Ventolin 2.5 mg INHALATION RT-Q6H ml 11/07/22 Rx Nebulized] Benzonatate [Tessalon Perle] 200 mg PO TID PRN #9 capsule 11/07/22 Rx Enoxaparin [Lovenox] 40 mg SQ DAILY each 11/07/22 Rx Gabapentin [Neurontin] 100 mg PO BID PRN #4 cap 11/07/22 Rx INSULIN ASPART (NovoLOG) [NovoLOG 0 unit SQ ACHS each 11/07/22 Rx (formulary)] Losartan [Cozaar] 50 mg PO DAILY tab 11/07/22 Rx Magnesium Oxide [Mag-Ox] 400 mg PO BID #60 tablet 11/07/22 Rx Metoprolol Succinate (ER) [Toprol 50 mg PO DAILY tab 11/07/22 Rx XL] cefUROXime axetiL [Ceftin] 500 mg PO BID 7 Days #14 tab 11/07/22 Rx Allergies Allergy/AdvReac Type Severity Reaction Status Date / Time adhesive Allergy Rash/Hives Verified 11/03/22 21:01 ciprofloxacin [From Cipro] Allergy Unknown Verified 11/03/22 21:01 ciprofloxacin HCl Allergy Unknown Verified 11/03/22 21:01 [From Cipro] enoxaparin sodium Allergy Dyspnea Verified 11/03/22 21:01 [From Lovenox] Iodinated Contrast Media Allergy Dyspnea Verified 11/03/22 21:01 [Iodinated Contrast Media - IV Dye] isosorbide mononitrate Allergy HEADACHES Verified 11/03/22 21:01 [From Imdur] naproxen Allergy Unknown Verified 11/03/22 21:01 niacin Allergy HOT FLASHES Verified 11/03/22 21:01 [From Niaspan Extended-Release] nickel Allergy Unknown Verified 11/03/22 21:01 nitrofurantoin Allergy Unknown Verified 11/03/22 21:01 [From Macrobid] nitrofurantoin Allergy Unknown Verified 11/03/22 21:01 macrocrystalline [From Macrobid] Penicillins Allergy Dyspnea Verified 11/03/22 21:01 tramadol Allergy Unknown Verified 11/03/22 21:01 meperidine HCl [From Demerol] AdvReac Unknown Verified 11/03/22 21:01 pioglitazone HCl [From Actos] AdvReac FLUID Verified 11/03/22 21:01 RETENTION prednisone AdvReac RAISES Verified 11/03/22 21:01 SUGAR LEVEL pregabalin [From Lyrica] AdvReac Swelling Verified 11/03/22 21:01 Physical Exam Vitals: Vital Signs Temp Pulse Resp BP Pulse Ox 11/04/22 06:26 85 20 137/83 96 11/04/22 04:59 98.6 F 90 20 137/77 98 11/04/22 01:57 81 18 131/82 99 11/03/22 22:53 79 20 154/80 95 11/03/22 21:16 104 H 20 162/113 96 11/03/22 18:11 100.0 F H 122 H 18 186/114 95 Intake and Output 11/03/22 11/04/22 11/04/22 22:59 06:59 14:59 Other: Weight 58.967 kg GENERAL DESCRIPTION: Elderly female lying in bed, no distress. No tachypnea or accessory muscle of respiration use. HEENT: Shows Pallor , no scleral icterus. Oral mucous membrane is dry. No pharyngeal erythema or thrush NECK: Trachea central, no thyromegaly. LUNGS: Unlabored breathing. Decreased breath sounds at the base HEART: S1, S2, regular rate and rhythm. No loud murmur ABDOMEN: Soft, no tenderness , guarding or rigidity, no organomegaly EXTREMITIES: No edema of feet. SKIN: No rash, no masses palpable. NEUROLOGICAL: The patient is awake, alert, oriented x3, mood and affect normal. Results CBC & Chem 7: 11/05/22 07:11 11/07/22 07:04 Labs: Abnormal Lab Results - Last 24 Hours (Table) 11/03/22 11/03/22 11/03/22 Range/Units 18:47 18:47 18:47 WBC 11.1 H (3.8-10.6) k/uL Neutrophils # 9.8 H (1.3-7.7) k/uL Lymphocytes # 0.8 L (1.0-4.8) k/uL Sodium 125 L (137-145) mmol/L Chloride 87 L (98-107) mmol/L Creatinine 0.49 L (0.52-1.04) mg/dL Glucose 184 H (74-99) mg/dL Magnesium 1.2 L (1.6-2.3) mg/dL Troponin I (0.000-0.034) ng/mL Urine Protein 2+ H (Negative) Urine Glucose (UA) 2+ H (Negative) Urine Ketones 3+ H (Negative) Urine Blood Trace H (Negative) Ur Leukocyte Esterase Trace H (Negative) Urine WBC 10 H (0-5) /hpf Urine Bacteria Rare H (None) /hpf Urine Mucus Rare H (None) /hpf 11/03/22 Range/Units 18:47 WBC (3.8-10.6) k/uL Neutrophils # (1.3-7.7) k/uL Lymphocytes # (1.0-4.8) k/uL Sodium (137-145) mmol/L Chloride (98-107) mmol/L Creatinine (0.52-1.04) mg/dL Glucose (74-99) mg/dL Magnesium (1.6-2.3) mg/dL Troponin I 0.063 H* (0.000-0.034) ng/mL Urine Protein (Negative) Urine Glucose (UA) (Negative) Urine Ketones (Negative) Urine Blood (Negative) Ur Leukocyte Esterase (Negative) Urine WBC (0-5) /hpf Urine Bacteria (None) /hpf Urine Mucus (None) /hpf Assessment and Plan (1) Diarrhea Status: Acute Code(s): R19.7 - DIARRHEA, UNSPECIFIED SNOMED Code(s): 79595644 (2) UTI (urinary tract infection) Status: Acute Code(s): N39.0 - URINARY TRACT INFECTION, SITE NOT SPECIFIED SNOMED Code(s): 22098660 Plan: 1patient was in the hospital with mental status changes in this patient who did have low-grade fever did have mild elevated white count CT abdominal pelvis concerning for possible cystitis and did have mild symptoms with a possible component of UTI from enteric gram-negative pathogen 2-patient also complaining of diarrhea with multiple loose stools rule out infectious etiology 3-we will check a stool for C. difficile and check stool culture 4-continue with Rocephin while waiting for the culture to finalize We will follow on clinical condition and cultures to further adjust medication if needed Thank you for this consultation we will follow the patient along with you Time with Patient: Greater than 30
[2022-11-05] MEDS: ACETAMINOPHEN TAB 500 MG TAB PO PRN ×2 (03:44→16:25)
[2022-11-05 05:46] LABS: Glucose,Whole Blood 168 mg/dL (70-110)
[2022-11-05] MEDS: INSULIN ASPART (NovoLOG) 100 UNIT/ML VIAL SQ SCH ×4 (06:02→20:04)
[2022-11-05] MEDS ORDERED: VANCOMYCIN TROUGH DUE 1 EACH MISC MISCELLANE ONE (08:00)
[2022-11-05 08:11] LABS: HCT 36.2 % (34.0-46.0); MCH 28.9 pg (25.0-35.0); MCHC 33.7 g/dL (31.0-37.0); MCV 85.6 fL (80.0-100.0); Mean Platelet Volume 7.8; Platelet Count 237 k/uL (150-450); RBC 4.23 m/uL (3.80-5.40); RDW 14.8 % (11.5-15.5); WBC 6.6 k/uL (3.8-10.6)
[2022-11-05 08:12] LABS: HGB 12.2 gm/dL (11.4-16.0)
[2022-11-05 08:20] LABS: African American GFR (CKD) >90 (>60 ml/min/1.73 sqM); Anion Gap 7 mmol/L; Blood Urea Nitrogen 18 mg/dL (7-17); Calcium 8.1 mg/dL (8.4-10.2); Carbon Dioxide 30 mmol/L (22-30); Chloride 94 mmol/L (98-107); Glucose 150 mg/dL (74-99); Magnesium 2.1 mg/dL (1.6-2.3); Non-African American GFR(CKD) 84 (>60 ml/min/1.73 sqM); Potassium 3.3 mmol/L (3.5-5.1); Sodium 131 mmol/L (137-145)
[2022-11-05] MEDS ORDERED: Potassium Replacement Protocol 1 EACH MISC MISCELLANE PRN (09:04)
--- NOTE | 2022-11-05 09:20 | P.CNNES ---
History of Present Illness Consult date: 11/04/22 Requesting physician: Car Anderson Reason for Consult: Altered mental status History of Present Illness: Patient is a 77-year-old right-handed female with history of hypertension, diabetes came to the hospital by ambulance yesterday at 6:05 PM for altered mental status. Patient states that 2 days ago, she suffered from a fall. She was sitting in the chair, got up off the chair in the living room to go to the kitchen, but she started walking sideways, legs felt weak and she fell hitting her head on the wooden rocker she went to [facility] where she underwent computed tomography scan of the head and x-rays, was found to have some low magnesium was replaced on magnesium and released home. Once she went home, she had a bowel accident and it took extra time for her to clear up the mess. She went to sleep and the next morning, her grand daughter could not wake her up. She called patient's daughter, who came over at 4 PM and noticed that patient had lost control of urine in the bed and she was laying with legs hanging off the bed. She was difficult to wake up, therefore patient's daughter called 911 and she was brought to the hospital. Patient states that for the last 14 days she has been having watery diarrhea and she has difficulty controlling her bowels. After every meal, she can't control her stools and it just comes out if she cannot go to the bathroom right on time. She has been pooping in her close for last 14 days. EMS flow sheet not available in the chart. On arrival, vital signs blood pressure 186/114, which came down to 162/113, to pulse rate 122, temperature 100.0. Blood test shows WBC 11.1 with slightly elevated neutrophils. Hemoglobin, hematocrit, platelets normal, PT/PTT normal, sodium 125 potassium 4.1, normal renal functions, normal hepatic panel. Troponin mildly elevated 0.063. Lactate is 1.3 normal. UA shows trace leukocyte esterase. Influenza screen, RSV and coronal virus PCR negative. CT head and cervical spine showed no acute intracranial process. No evidence of cervical spine fracture, moderate multilevel degenerative disc disease. Post fixation changes hardware appears intact and in appropriate position. EKG shows sinus tachycardia with frequent supraventricular premature complexes, chest x-ray showed no acute cardiopulmonary disease. CT abdomen and pelvis showed no evidence for infectious process within the abdomen or pelvis. Montaño catheter in place correlate with urinalysis for cystitis. Ascending thoracic aortic ectasia up to 14 mm. Severe coronary artery atherosclerosis and aortic valve leaflet calcification. Patient has history of hypertension, diabetes since 1993. Patient denies any tobacco, alcohol or drug use. Patient states she has history of first stroke in November 2021 when she was admitted to [facility] and was transferred to [facility] in [place]. She stayed in the hospital for 20 days. The stroke affected her balance, and it makes her fall. It mainly affected her left leg. Patient says that at that time she was told that she had another stroke that was unnoticed or clinically silent in the past. Patient has history of right CEA in 2000 at [facility]. She follows up with yearly carotid ultrasound at [facility]. Patient has history of 2 back surgeries. Patient's home medications metformin, Singler, albuterol, Lipitor 40 mg, isosorbide, metoprolol, gabapentin 100 mg twice a day, aspirin 81 mg, glipizide and vitamin D. Patient lives with her and granddaughter, who is the caregiver. Patient uses a regular cane for ambulation. The 4-prong cane makes her trip on it. Patient's has Alzheimer's disease. Review of Systems Nausea vomiting with concussion Constitutional: Reports fever, Reports weight loss, Denies chills Eyes: denies blurred vision, denies diplopia, denies pain Ears: bilateral: decreased hearing (Uses hearing aids), deny: ear discharge Ears, nose, mouth and throat: Denies headache, Denies sore throat Cardiovascular: Denies chest pain, Denies shortness of breath Respiratory: Denies cough, Denies excessive sputum Gastrointestinal: Reports diarrhea, Reports nausea, Reports vomiting, Denies abdominal pain Genitourinary: Reports urge incontinence, Reports urgency, Denies dysuria, D enies hematuria Musculoskeletal: Denies low back pain, Denies myalgias, Denies neck pain Integumentary: Reports rash, Denies pruritus Neurological: Reports as per HPI Psychiatric: Denies anxiety, Denies depression Endocrine: Reports fatigue, Reports weight change Past Medical History Past Medical History: Asthma, Diabetes Mellitus, Fibromyalgia, Hyperlipidemia, Hypertension, Thyroid Disorder Additional Past Medical History / Comment(s): hep A, anemia History of Any Multi-Drug Resistant Organisms: MRSA Date of last positivie culture/infection: 2007 MDRO Source:: right arm Past Surgical History: Back Surgery, Bladder Surgery, Cholecystectomy, Hysterectomy, Joint Replacement, Orthopedic Surgery, Tonsillectomy Additional Past Surgical History / Comment(s): ovarian cysts, angelina hip replacement,rt cataract,rt carotidendarectomy Past Anesthesia/Blood Transfusion Reactions: No Reported Reaction Additional Past Anesthesia/Blood Transfusion Reaction / Comment(s): no problems with prior blood transfusion Past Psychological History: No Psychological Hx Reported Past Alcohol Use History: None Reported Past Drug Use History: None Reported - Past Family History Father Family Medical History: Diabetes Mellitus, Myocardial Infarction (MD) Mother Family Medical History: Diabetes Mellitus, Myocardial Infarction (MD) Additional Family Medical History / Comment(s): from bleeding ulcers Medications and Allergies Home Medications Medication Instructions Recorded Confirmed Type Albuterol Sulfate [Ventolin HFA] 2 puff INHALATION RT-Q4H PRN 05/04/14 11/04/22 History Montelukast [Singulair] 10 mg PO HS 05/04/14 11/04/22 History metFORMIN HCL 500 - 1,000 mg PO BID 05/04/14 11/04/22 History Atorvastatin [Lipitor] 40 mg PO DAILY 12/31/16 11/04/22 History Acetaminophen Tab [Tylenol Tab] 1,000 mg PO Q6HR PRN 11/03/22 11/04/22 History Diclofenac Sodium Gel [Voltaren 1 applic TOPICAL QID PRN 11/03/22 11/04/22 History Gel] Gabapentin [Neurontin] 100 mg PO BID PRN 11/03/22 11/04/22 History Isosorbide Mononitrate ER [Imdur] 30 mg PO DAILY 11/03/22 11/04/22 History Metoprolol Succinate [Metoprolol 12.5 mg PO HS 11/03/22 11/04/22 History Succinate ER] Multivit-Min/Iron/Folic/Lutein 1 tab PO DAILY 11/03/22 11/04/22 History [Centrum Silver Women Tablet] Acetaminophen/Diphenhydramine 1 tab PO HS 11/04/22 11/04/22 History [Tylenol PM 500-25mg] Aspirin EC [Ecotrin Low Dose] 81 mg PO DAILY 11/04/22 11/04/22 History Cholecalciferol [Vitamin D3 (25 50 mcg PO DAILY 11/04/22 11/04/22 History Mcg = 1000 Iu)] Magnesium Chloride [Mag64] 128 mg PO HS 11/04/22 11/04/22 History Omeprazole [PriLOSEC] 20 mg PO DAILY 11/04/22 11/04/22 History glipiZIDE [Glucotrol] 5 mg PO BID 11/04/22 11/04/22 History Allergies Allergy/AdvReac Type Severity Reaction Status Date / Time adhesive Allergy Rash/Hives Verified 11/03/22 21:01 ciprofloxacin [From Cipro] Allergy Unknown Verified 11/03/22 21:01 ciprofloxacin HCl Allergy Unknown Verified 11/03/22 21:01 [From Cipro] enoxaparin sodium Allergy Dyspnea Verified 11/03/22 21:01 [From Lovenox] Iodinated Contrast Media Allergy Dyspnea Verified 11/03/22 21:01 [Iodinated Contrast Media - IV Dye] isosorbide mononitrate Allergy HEADACHES Verified 11/03/22 21:01 [From Imdur] naproxen Allergy Unknown Verified 11/03/22 21:01 niacin Allergy HOT FLASHES Verified 11/03/22 21:01 [From Niaspan Extended-Release] nickel Allergy Unknown Verified 11/03/22 21:01 nitrofurantoin Allergy Unknown Verified 11/03/22 21:01 [From Macrobid] nitrofurantoin Allergy Unknown Verified 11/03/22 21:01 macrocrystalline [From Macrobid] Penicillins Allergy Dyspnea Verified 11/03/22 21:01 tramadol Allergy Unknown Verified 11/03/22 21:01 meperidine HCl [From Demerol] AdvReac Unknown Verified 11/03/22 21:01 pioglitazone HCl [From Actos] AdvReac FLUID Verified 11/03/22 21:01 RETENTION prednisone AdvReac RAISES Verified 11/03/22 21:01 SUGAR LEVEL pregabalin [From Lyrica] AdvReac Swelling Verified 11/03/22 21:01 Physical Examination - Vital Signs Vital Signs: Vital Signs Temp Pulse Resp BP Pulse Ox 11/04/22 06:26 85 20 137/83 96 11/04/22 04:59 98.6 F 90 20 137/77 98 11/04/22 01:57 81 18 131/82 99 11/03/22 22:53 79 20 154/80 95 11/03/22 21:16 104 H 20 162/113 96 11/03/22 18:11 100.0 F H 122 H 18 186/114 95 Intake and Output 11/03/22 11/04/22 11/04/22 22:59 06:59 14:59 Other: Weight 58.967 kg Patient is an elderly female, very pleasant, in no acute distress. Patient is alert awake oriented to time place and person. Speech and language functions are normal. Patient can name and repeat very well. No aphasia or dysarthria. Attention, concentration and fund of knowledge is adequate. On cranial nerve examination, pupils are equal, round and reacting to light, visual bai are full on confrontation, with no neglect on double simultaneous stimulation. Extraocular muscles are intact with no nystagmus. Face is symmetric, tongue protrudes to the midline. Palatal elevation and sensation normal, hearing and shoulder shrug normal, facial sensation normal. On muscle strength testing, there is left pronator drift, which patient attributes to torn rotator cuff on the left. Her strength is otherwise 5/5 bilaterally in the upper limbs. In the lower limbs (right/left) ankle do rsiflexion 5/5-, inversion 5/5, peronei 5/4-hip flexion 5-/5-. Deep tendon reflexes are symmetric 2+ biceps, 2+ brachioradialis, 2 at the knees, 2 ankles and plantars are downgoing bilaterally. Sensory to touch is equal with no neglect on double simultaneous stimulation. Cerebellar function showed no ataxia for [id number] testing. No dysdiadochokinesia. No ataxia for [id number] testing on either side. Tone and bulk of muscles normal. Gait deferred.. On general examination, there is no carotid bruit or murmur, S1-S2 audible. Chest is clear on consultation. Abdomen is soft nontender. No organomegaly, bowel sounds present. Peripheral pulses are present. No edema. Results - Laboratory Findings CBC and BMP: 11/05/22 07:11 11/05/22 07:11 Abnormal Lab Findings: Abnormal Labs 11/03/22 11/03/22 11/03/22 18:47 18:47 18:47 WBC 11.1 H Neutrophils # 9.8 H Lymphocytes # 0.8 L Sodium 125 L Chloride 87 L Creatinine 0.49 L Glucose 184 H Magnesium 1.2 L Troponin I Urine Protein 2+ H Urine Glucose (UA) 2+ H Urine Ketones 3+ H Urine Blood Trace H Ur Leukocyte Esterase Trace H Urine WBC 10 H Urine Bacteria Rare H Urine Mucus Rare H 11/03/22 18:47 WBC Neutrophils # Lymphocytes # Sodium Chloride Creatinine Glucose Magnesium Troponin I 0.063 H* Urine Protein Urine Glucose (UA) Urine Ketones Urine Blood Ur Leukocyte Esterase Urine WBC Urine Bacteria Urine Mucus Assessment and Plan Assessment: * Episode of unresponsiveness (difficulty waking up), unclear etiology. Rule out syncope, seizure, other etiologies * Hyponatremia * Recent diarrhea for 2 weeks. * Rule out cystitis * Hypertension * Diabetes * History of CVA affected balance in November 2021 * History of right CEA in 2000 * History of 2 back surgeries Plan: * Carotid Doppler to rule out stenosis * 2-D echo * EEG * Fasting lipid panel, hemoglobin A1c, B12, folate, TSH * Treatment of hyponatremia and diarrhea as per IM. ID on board. * Continue aspirin 81 mg daily. * Telemetry monitoring. * Neurology will follow. Thank you for the consult. Time with Patient: Greater than 30
[2022-11-05] MEDS: ASPIRIN 81 MG PO SCH (09:28)
[2022-11-05] MEDS: ATORVASTATIN 40 MG TAB PO SCH (09:28)
[2022-11-05] MEDS: ENOXAPARIN 40 MG/0.4 ML SYRINGE SQ SCH (09:29)
[2022-11-05] MEDS: ISOSORBIDE MONONITRATE ER 30 MG TAB.ER.24H PO SCH (09:29)
[2022-11-05] MEDS: METOPROLOL SUCCINATE (ER) 25 MG TAB.ER.24H PO SCH (09:29)
[2022-11-05 11:48] LABS: Glucose,Whole Blood 177 mg/dL (70-110)
[2022-11-05] MEDS: POTASSIUM CHLORIDE ER 20 MEQ TAB.ER PO SCH (12:26)
[2022-11-05] MEDS ORDERED: GABAPENTIN 100 MG CAP PO PRN (15:43)
--- NOTE | 2022-11-05 15:47 | P.PN ---
Subjective Progress Note Date: 11/05/22 .. Patient is a pleasant 77-year-old female was brought in with complaints of generalized weakness as per the admission note as patient has altered mental status with the such complaints or denied to me by patient and family members patient is alert oriented 3 mental status is at her baseline. There is a concern that patient may have had slurred speech although CT of the head did not show any significant abnormality and patient had previous history of stroke is on Lipitor. Patient is found to be hyponatremic upon further cushioning patient had diarrhea for 2 weeks and she does admit to suprapubic pain and dysuria although patient doesn't have any specific tenderness urine analysis is not significantly abnormal but mildly abnormal. Patient has mildly elevated troponin of 0.063 leukocytosis of 11.1 and a fever of 100.3. Patient doesn't have any obvious cellulitis or rash because of which Vanco mycin was discontinued patient was given a dose of vancomycin and cefepime. Patient doesn't have any obvious weakness patient is also hypomagnesemia 11/05/2022 . . Patient is seen and evaluated in follow-up today maintained on IV antibiotics in the form of ceftriaxone with infectious disease along with neurology following. Patient also with some electrolyte abnormalities including hypokalemia at 3.3 and sodium is slightly improved at 131. Patient also being followed by neurology awaiting to undergo EEG tonight which is currently pending. Patient with significant weakness recommend PT/OT therapy evaluation. patient daughter at the bedside with questions and concerns were answered to the best of our ability. Will await PT/OT therapy evaluation and discuss possible ECF if that is recommended. Patient is currently afebrile and WBC has normalized with no reports of chest pain or shortness of breath noted. Patient denies nausea or vomiting and tolerating diet. Needs encouragement with oral intake as patient continues with significant weakness. Patient denies pain or burning with urination and currently has indwelling Montaño catheter and will remove and monitor for any retention. Review of systems: Constitutional: No reports of fatigue, fever, or chills Cardiovascular: No reports of chest pain or palpitations Respiratory: No reports of shortness of breath or cough GI: No reports of nausea, vomiting, or diarrhea : No reports of dysuria or retention Neurovascular: reports of generalized weakness All medications have been reviewed PHYSICAL EXAMINATION: GENERAL: The patient is alert and oriented x3, not in any acute distress. Well developed, well nourished. HEENT: Pupils are round and equally reacting to light. EOMI. No scleral icterus. No conjunctival pallor. Normocephalic, atraumatic. No pharyngeal erythema. No thyromegaly. CARDIOVASCULAR: S1 and S2 present. No murmurs, rubs, or gallops. PULMONARY: Chest is clear to auscultation, no wheezing or crackles. ABDOMEN: Soft, nontender, nondistended, normoactive bowel sounds. No palpable organomegaly. MUSCULOSKELETAL: No joint swelling or deformity. EXTREMITIES: No cyanosis, clubbing, or pedal edema. NEUROLOGICAL: Gross neurological examination did not reveal any focal deficits. Does have generalized weakness SKIN: No rashes. Assessment: -Generalized weakness and fatigue: Secondary to hyponatremia which is again secondary to diarrhea patient denied any recent diuretic use patient will be started on IV fluids. -Sepsis: Secondary to possibility of urinary tract infection. Blood cultures are pending -Mildly elevated troponin secondary to sepsis -Diarrhea: Probably infectious or inflammatory diarrhea -Hypovolemic hyponatremia: Secondary to diarrhea: IV fluids as mentioned above -hypomagnesemia: Secondary to diarrhea and will be replaced. -type 2 diabetes mellitus hold off on her home regimen patient will be on sliding scale insulin -Hyperlipidemia -Hypertension -Hyperthyroidism -DVT prophylaxis: Lovenox Plan: Recommend continue with current medications with management of infectious disease and neurology. Patient scheduled to undergo EEG today which is currently pending. Infectious disease following maintained on ceftriaxone and urinalysis was not significant and no culture was sent and is showing some improvement in hydration and will discuss further with infectious disease about discharge planning Patient with significant weakness and not much of an oral intake encouraged increased activity as tolerated and oral intake. Will have physical therapy evaluate the patient Case management to follow-up and discuss about possible ECF and will await PT/OT therapy notes Sodium slightly improved on gentle IV hydration will continue follow-up with repeat labs. C. diff testing and stool culture ordered and pending although patient has not provided a sample as she no longer has diarrhea Recommend follow-up labs in a.m. and will await PT/OT therapy evaluation with possible discharge in the next 24-48 hours The impression and plan of care has been dictated by Tracie Brothers, Nurse Practitioner as directed. Dr. Ramone MD I have performed a history and examination and MDM of this patient, discussed the same with the dictator, and agree with the dictator's assessment and plan as written ,documented as a scribe. Based on total visit time, I have performed more than 50% of the visit. Objective - Vital Signs Vital signs: Vital Signs Temp 98.1 F 11/04/22 23:54 Pulse 70 11/05/22 04:00 Resp 16 11/05/22 04:00 BP 131/80 11/05/22 04:00 Pulse Ox 99 11/05/22 04:00 FiO2 Intake & Output 11/04/22 11/05/22 11/05/22 18:59 06:59 18:59 Output Total 275 700 500 Balance -275 -700 -500 Weight 58.967 kg Output: Urine 275 700 500 Other: Voiding Method Indwelling Catheter - Labs CBC & Chem 7: 11/05/22 07:11 11/05/22 07:11 Labs: Abnormal Lab Results - Last 24 Hours (Table) 11/04/22 11/04/22 11/04/22 Range/Units 12:46 16:33 19:51 Sodium (137-145) mmol/L Potassium (3.5-5.1) mmol/L Chloride (98-107) mmol/L BUN (7-17) mg/dL Glucose (74-99) mg/dL POC Glucose (mg/dL) 257 H 249 H 264 H (70-110) mg/dL Calcium (8.4-10.2) mg/dL 11/05/22 11/05/22 Range/Units 05:43 07:11 Sodium 131 L (137-145) mmol/L Potassium 3.3 L (3.5-5.1) mmol/L Chloride 94 L (98-107) mmol/L BUN 18 H (7-17) mg/dL Glucose 150 H (74-99) mg/dL POC Glucose (mg/dL) 168 H (70-110) mg/dL Calcium 8.1 L (8.4-10.2) mg/dL
[2022-11-05] MEDS: SODIUM CHLORIDE 0.9% 1,000 ML IV SCH ×2 (16:25)
[2022-11-05 16:32] LABS: Glucose,Whole Blood 208 mg/dL (70-110)
--- NOTE | 2022-11-05 17:33 | EEG ---
ELECTROENCEPHALOGRAM REPORT PREAMBLE: This is a 77-year-old female with episode of unresponsiveness. This study is performed to evaluate for any epileptiform activity. EEG FINDINGS: This is a 21-channel digital EEG recorded with video component, utilizing 10/20 International System with referential and bipolar montages. Background consists of well-developed, moderately well-regulated, moderate amplitude 8 Hz alpha activity seen in posterior head region. Background is posterior dominant and reactive to eye opening and closing. Some myogenic activity was seen in the frontal region. Different stages of sleep were not seen. No focal or generalized epileptiform activity was seen. EKG channel showed some arrhythmia. IMPRESSION: This is a normal awake and drowsy EEG. No focal, lateralized, or epileptiform activity was seen. EKG channel showed some irregular heart rhythm. Correlate for arrhythmia. MMODL / IJN: [id number] /
[2022-11-05 19:58] LABS: Glucose,Whole Blood 250 mg/dL (70-110)
[2022-11-05] MEDS: MONTELUKAST 10 MG TAB PO SCH (20:04)
[2022-11-05 20:52] LABS: Chol/HDL Ratio 4.33 Ratio; LDL Cholesterol,Calculated 93.6 mg/dL (0.0-131.0)
--- NOTE | 2022-11-05 21:56 | P.PN ---
Subjective Progress Note Date: 11/05/22 Principal diagnosis: UTI and diarrhea Patient is a 77-year-old female with a past medical histoy significant for diabetes mellitus hypertension hyperlipidemia has been brought into the ER last evening for evaluation of mental status changes, patient did have a positive UA concerning for UTI. On today's evaluation that is 11/05/2022, patient denies having any fever or chills, the patient is breathing comfortably. Denies having any chest pain shortness of breath or cough, the patient diarrhea has slowed down, feeling slightly better since complaining of weakness Objective - Vital Signs Vital signs: Vital Signs Temp 97.6 F 11/05/22 12:00 Pulse 88 11/05/22 12:00 Resp 18 11/05/22 12:00 BP 111/84 11/05/22 12:00 Pulse Ox 96 11/05/22 12:00 FiO2 Intake & Output 11/04/22 11/05/22 11/05/22 18:59 06:59 18:59 Output Total 275 700 500 Balance -275 -700 -500 Weight 58.967 kg Output: Urine 275 700 500 Other: Voiding Method Indwelling Catheter - Exam GENERAL DESCRIPTION: An elderly female lying in bed in no distress RESPIRATORY SYSTEM: Unlabored breathing , decreased breath sounds at bases HEART: S1 S2 regular rate and rhythm , ABDOMEN: Soft , no tenderness EXTREMITIES: No edema feet - Labs CBC & Chem 7: 11/05/22 07:11 11/05/22 07:11 Labs: Abnormal Lab Results - Last 24 Hours (Table) 11/04/22 11/04/22 11/05/22 Range/Units 16:33 19:51 05:43 Sodium (137-145) mmol/L Potassium (3.5-5.1) mmol/L Chloride (98-107) mmol/L BUN (7-17) mg/dL Glucose (74-99) mg/dL POC Glucose (mg/dL) 249 H 264 H 168 H (70-110) mg/dL Hemoglobin A1c (<=6.0) % Calcium (8.4-10.2) mg/dL 11/05/22 11/05/22 11/05/22 Range/Units 07:11 07:11 11:46 Sodium 131 L (137-145) mmol/L Potassium 3.3 L (3.5-5.1) mmol/L Chloride 94 L (98-107) mmol/L BUN 18 H (7-17) mg/dL Glucose 150 H (74-99) mg/dL POC Glucose (mg/dL) 177 H (70-110) mg/dL Hemoglobin A1c 7.1 H (<=6.0) % Calcium 8.1 L (8.4-10.2) mg/dL Microbiology - Last 24 Hours (Table) 11/03/22 19:35 Blood Culture - Preliminary Blood Assessment and Plan (1) UTI (urinary tract infection) Current Visit: Yes Status: Acute Code(s): N39.0 - URINARY TRACT INFECTION, SITE NOT SPECIFIED SNOMED Code(s): 34482765 (2) Diarrhea Current Visit: Yes Status: Acute Code(s): R19.7 - DIARRHEA, UNSPECIFIED SNOMED Code(s): 54280259 Plan: 1patient was in the hospital with mental status changes in this patient who did have low-grade fever did have mild elevated white count CT abdominal pelvis concerning for possible cystitis and did have mild symptoms with a possible component of UTI from enteric gram-negative pathogen 2-patient also complaining of diarrhea with multiple loose stools rule out infectious etiology 3-we're currently waiting for stool for C. difficile and check stool culture 4-patient has shown some improvement and will continue with Rocephin while waiting for the culture to finalize Daughter at the bedside multiple questions were answered
[2022-11-06] MEDS: ACETAMINOPHEN TAB 500 MG TAB PO PRN ×2 (02:19→21:31)
[2022-11-06] MEDS: SODIUM CHLORIDE 0.9% 1,000 ML IV SCH ×2 (03:57→21:28)
[2022-11-06 06:08] LABS: Glucose,Whole Blood 160 mg/dL (70-110)
[2022-11-06] MEDS: INSULIN ASPART (NovoLOG) 100 UNIT/ML VIAL SQ SCH ×4 (06:10→21:32)
[2022-11-06] MEDS: ISOSORBIDE MONONITRATE ER 30 MG TAB.ER.24H PO SCH (08:23)
[2022-11-06] MEDS: METOPROLOL SUCCINATE (ER) 25 MG TAB.ER.24H PO SCH (08:23)
[2022-11-06] MEDS: CHOLECALCIFEROL 25 MCG (1000 IU) TABLET PO SCH (08:23)
[2022-11-06] MEDS: ATORVASTATIN 40 MG TAB PO SCH (08:23)
[2022-11-06] MEDS: ASPIRIN 81 MG PO SCH (08:24)
[2022-11-06] MEDS: ENOXAPARIN 40 MG/0.4 ML SYRINGE SQ SCH (08:58)
[2022-11-06 09:19] LABS: African American GFR (CKD) >90 (>60 ml/min/1.73 sqM); Anion Gap 7 mmol/L; Blood Urea Nitrogen 15 mg/dL (7-17); Calcium 8.4 mg/dL (8.4-10.2); Carbon Dioxide 23 mmol/L (22-30); Chloride 101 mmol/L (98-107); Glucose 161 mg/dL (74-99); Non-African American GFR(CKD) 89 (>60 ml/min/1.73 sqM); Potassium 3.5 mmol/L (3.5-5.1); Sodium 131 mmol/L (137-145)
--- NOTE | 2022-11-06 11:04 | P.PN ---
Subjective Progress Note Date: 11/05/22 Patient was seen for a follow-up. Patient is laying comfortably in the bed, offers no new complaints. Patient's telemetry monitoring showing sinus rhythm, with some PSVT in the 140s. No other arrhythmia. Objective - Vital Signs Vital signs: Vital Signs Temp 97.4 F L 11/06/22 08:00 Pulse 69 11/06/22 08:00 Resp 16 11/06/22 08:00 BP 143/68 11/06/22 08:00 Pulse Ox 94 L 11/06/22 08:00 FiO2 Intake & Output 11/05/22 11/06/22 11/06/22 18:59 06:59 18:59 Intake Total 250 Output Total 825 Balance -825 250 Intake: Oral 250 Output: Urine 825 Other: Voiding Method Indwelling Catheter Indwelling Catheter # Voids 1 # Bowel Movements 1 - Exam Patient's examination is unchanged. - Labs CBC & Chem 7: 11/05/22 07:11 11/06/22 08:03 Labs: Abnormal Lab Results - Last 24 Hours (Table) 11/05/22 11/05/22 11/05/22 Range/Units 07:11 07:11 11:46 Sodium (137-145) mmol/L Glucose (74-99) mg/dL POC Glucose (mg/dL) 177 H (70-110) mg/dL Hemoglobin A1c 7.1 H (<=6.0) % HDL Cholesterol 35.80 L (40.00-60.00) mg/dL Vitamin B12 1515.0 H (200.0-944.0) pg/mL 11/05/22 11/05/22 11/06/22 Range/Units 16:30 19:53 06:02 Sodium (137-145) mmol/L Glucose (74-99) mg/dL POC Glucose (mg/dL) 208 H 250 H 160 H (70-110) mg/dL Hemoglobin A1c (<=6.0) % HDL Cholesterol (40.00-60.00) mg/dL Vitamin B12 (200.0-944.0) pg/mL 11/06/22 Range/Units 08:03 Sodium 131 L (137-145) mmol/L Glucose 161 H (74-99) mg/dL POC Glucose (mg/dL) (70-110) mg/dL Hemoglobin A1c (<=6.0) % HDL Cholesterol (40.00-60.00) mg/dL Vitamin B12 (200.0-944.0) pg/mL Microbiology - Last 24 Hours (Table) 11/03/22 19:35 Blood Culture - Preliminary Blood Assessment and Plan Assessment: * Episode of unresponsiveness (difficulty waking up), unclear etiology. Rule out syncope, seizure, other etiologies * Hyponatremia * Recent diarrhea for 2 weeks. * Possible cystitis * Hypertension * Diabetes * History of CVA affected balance in November 2021 * History of right CEA in 2000 * History of 2 back surgeries Plan: * Carotid Doppler revealed less than 50% stenosis of bilateral carotid bifurcations. Antegrade flow in both vertebral arteries. * EEG was normal awake and drowsy. No focal, lateralized or epileptiform activity was seen. EKG channel showed irregular heart rhythm. Correlate for arrhythmia. * Telemetry monitoring showing sinus rhythm with some runs of PSVT in 140. * Patient has mildly elevated cardiac enzymes. Patient states that she was seen by packing floor worker of week ago where she underwent stress test and a 2-D echo, and was told to have some blockage. Suggest cardiology consultation. * Suggest 30 day event monitor and rule out paroxysmal atrial fibrillation or other arrhythmia. * Fasting lipid panel with cholesterol 155, LDL 93, HDL 35 and triglycerides 128. Continue Lipitor 40 mg daily. * Hemoglobin A1c 7.1. Recommend optimize control of diabetes to target A1c < 7.0. * B12 1515, folate 14.10 , TSH 1.77 all normal * Treatment of hyponatremia and diarrhea as per IM. Patient has cystitis, patient on ceftriaxone. ID on board. * Continue aspirin 81 mg daily.
[2022-11-06 11:52] LABS: Glucose,Whole Blood 165 mg/dL (70-110)
[2022-11-06] MEDS ORDERED: LORazepam 2 MG/ML INJ IV STA (15:18)
--- NOTE | 2022-11-06 15:44 | P.PN ---
Subjective Progress Note Date: 11/06/22 Principal diagnosis: UTI and diarrhea Patient is a 77-year-old female with a past medical histoy significant for diabetes mellitus hypertension hyperlipidemia has been brought into the ER last evening for evaluation of mental status changes, patient did have a positive UA concerning for UTI. On today's evaluation that is 11/06/2022, patient remains to be afebrile, the patient is breathing comfortably on room air, the patient denies having any chest pain shortness of breath or cough, the patient diarrhea has slowed down, feeling slightly better since complaining of weakness Objective - Vital Signs Vital signs: Vital Signs Temp 97.6 F 11/06/22 12:00 Pulse 76 11/06/22 12:00 Resp 16 11/06/22 12:00 BP 157/79 11/06/22 12:00 Pulse Ox 96 11/06/22 12:00 FiO2 Intake & Output 11/05/22 11/06/22 11/06/22 18:59 06:59 18:59 Intake Total 250 Output Total 825 Balance -825 250 Intake: Oral 250 Output: Urine 825 Other: Voiding Method Indwelling Catheter Indwelling Catheter # Voids 1 # Bowel Movements 1 - Exam GENERAL DESCRIPTION: An elderly female lying in bed in no distress RESPIRATORY SYSTEM: Unlabored breathing , decreased breath sounds at bases HEART: S1 S2 regular rate and rhythm , ABDOMEN: Soft , no tenderness EXTREMITIES: No edema feet - Labs CBC & Chem 7: 11/05/22 07:11 11/06/22 08:03 Labs: Abnormal Lab Results - Last 24 Hours (Table) 11/05/22 11/05/22 11/05/22 Range/Units 07:11 16:30 19:53 Sodium (137-145) mmol/L Glucose (74-99) mg/dL POC Glucose (mg/dL) 208 H 250 H (70-110) mg/dL HDL Cholesterol 35.80 L (40.00-60.00) mg/dL Vitamin B12 1515.0 H (200.0-944.0) pg/mL 11/06/22 11/06/22 11/06/22 Range/Units 06:02 08:03 11:49 Sodium 131 L (137-145) mmol/L Glucose 161 H (74-99) mg/dL POC Glucose (mg/dL) 160 H 165 H (70-110) mg/dL HDL Cholesterol (40.00-60.00) mg/dL Vitamin B12 (200.0-944.0) pg/mL Microbiology - Last 24 Hours (Table) 11/03/22 19:35 Blood Culture - Preliminary Blood Assessment and Plan (1) UTI (urinary tract infection) Current Visit: Yes Status: Acute Code(s): N39.0 - URINARY TRACT INFECTION, SITE NOT SPECIFIED SNOMED Code(s): 31721372 (2) Diarrhea Current Visit: Yes Status: Acute Code(s): R19.7 - DIARRHEA, UNSPECIFIED SNOMED Code(s): 23217835 Plan: 1patient was in the hospital with mental status changes in this patient who did have low-grade fever did have mild elevated white count CT abdominal pelvis concerning for possible cystitis and did have mild symptoms with a possible component of UTI from enteric gram-negative pathogen 2-patient did have resolution of her diarrhea unfortunately no stool studies were done 3-patient seemed to showing clinical improvement with the Rocephin finish therapy short course of oral Ceftin Time with Patient: Less than 30
--- NOTE | 2022-11-06 16:19 | MR ---
EXAMINATION TYPE: MR brain wo con DATE OF EXAM: 11/06/2022 COMPARISON: CT brain 11/03/2022 HISTORY: Episode of unresponsiveness. CONTRAST: Performed utilizing 0 mL intravenous Gadavist gadolinium contrast. TECHNIQUE: Multiplanar, multiecho imaging on a 3.0 Mariaelena magnet is performed through the brain. Stud y is performed within 24 hours of arrival to the hospital. The craniovertebral junction is normal. The pituitary is normal. Diffusion-weighted imaging is performed. No abnormal hyperintensity is present to suggest an acute i ntracranial infarct or acute ischemic change. An old lacunar infarct in the right basal ganglia may b e present. Note is made of some ex vacuo effect right lateral ventricle. There are scattered punctate areas of hyperintensity on T2 and Inversion Recovery weighted sequences which are non-specific but can be related to microvascular ischemic changes. Ventricles and sulci are slightly prominent for the patient age. IMPRESSIONS: 1. Old lacunar infarct right basal ganglion. 2. Periventricular and deep white matter chronic appearing microvascular ischemic-type change. 3. Atrophy
[2022-11-06 17:02] LABS: Glucose,Whole Blood 142 mg/dL (70-110)
--- NOTE | 2022-11-06 18:58 | CA ---
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 Pablo Spence Procedure CPT: Indications: Syncope versus seizure Cardiac Hx: Technical Quality: Fair Contrast 1: Total Dose (mL): Contrast 2: Total Dose (mL): MEASUREMENTS (Male / Female) Normal Values 2D ECHO LV Diastolic Diameter PLAX 4.0 cm 4.2 - 5.9 / 3.9 - 5.3 cm LV Systolic Diameter PLAX 2.0 cm IVS Diastolic Thickness 1.1 cm 0.6 - 1.0 / 0.6 - 0.9 cm LVPW Diastolic Thickness 1.2 cm 0.6 - 1.0 / 0.6 - 0.9 cm LV Relative Wall Thickness 0.6 RV Internal Dim ED PLAX 3.1 cm LVOT Diameter 2.1 cm Aortic Root Diameter 2.8 cm LA Systolic Diameter LX 3.1 cm 3.0 - 4.0 / 2.7 - 3.8 cm LV Diastolic Volume MOD BP 38.9 cm??? 67 - 155 / 56 - 104 cm??? LV Systolic Volume MOD BP 10.4 cm??? 22 - 58 / 19 - 49 cm??? LV Ejection Fraction MOD BP 73.2 % >= 55 % LV Diastolic Volume MOD 4C 48.5 cm??? LV Systolic Volume MOD 4C 11.2 cm??? LV Ejection Fraction MOD 4C 76.8 % LV Diastolic Length 4C 6.4 cm LV Systolic Length 4C 5.1 cm LV Diastolic Volume MOD 2C 31.2 cm??? LV Systolic Volume MOD 2C 9.4 cm??? LV Ejection Fraction MOD 2C 69.7 % LV Diastolic Length 2C 6.3 cm LV Systolic Length 2C 5.3 cm LA Volume 42.3 cm??? 18 - 58 / 22 - 52 cm??? DOPPLER AV Peak Velocity 286.6 cm/s AV Peak Gradient 32.8 mmHg AV Mean Velocity 223.2 cm/s AV Mean Gradient 22.2 mmHg AV Velocity Time Integral 61.8 cm AI Peak Velocity 443.0 cm/s AI Peak Gradient 78.5 mmHg AI Pressure Half Time 672.9 ms LVOT Peak Velocity 88.9 cm/s LVOT Peak Gradient 3.2 mmHg AV Area Cont Eq pk 1.0 cm??? MV Peak Velocity 113.1 cm/s MV Peak Gradient 5.1 mmHg MV Mean Velocity 47.1 cm/s MV Mean Gradient 1.2 mmHg MV Velocity Time Integral 35.7 cm Mitral E Point Velocity 58.3 cm/s Mitral A Point Velocity 112.3 cm/s Mitral E to A Ratio 0.5 MV Deceleration Time 439.8 ms MV E' Velocity 6.0 cm/s Mitral E to MV E' Ratio 9.7 TR Peak Velocity 212.5 cm/s TR Peak Gradient 18.1 mmHg Right Ventricular Systolic Press 23.3 mmHg PV Peak Velocity 160.6 cm/s PV Peak Gradient 10.3 mmHg FINDINGS Left Ventricle Left ventricular ejection fraction is estimated at 55-60 %.left ventricular cavity size normal. Mildly increased left ventricular wall thickness. Right Ventricle Normal right ventricular size. RVSP= 23mmhg Right Atrium Normal right atrial size. Left Atrium Normal left atrial size. Mitral Valve Mitral valve thickened.mild mitral regurgitation. Aortic Valve Moderate AV Calcification. Estimated AV Area= 1.0cm2 mild aortic regurgitation. Tricuspid Valve Structurally normal tricuspid valve. Mild TR. Pulmonic Valve Pulmonic valve not well visualized. .Trace to mild pulmonic regurgitation. Pericardium Normal pericardium. Aorta Normal size aortic root and proximal ascending aorta. CONCLUSIONS 1. Normal left ventricular size and function 2. Mild mitral and aortic regurgitation with mild to moderate aortic stenosis and mean gradient of 22 mmHg Previewed by: Dr. Andre Cherry MD (Electronically Signed) Final Date: 06 November 2022 18:58
[2022-11-06 19:55] LABS: Glucose,Whole Blood 156 mg/dL (70-110)
--- NOTE | 2022-11-06 21:15 | P.PN ---
Subjective Progress Note Date: 11/06/22 .. Patient is a pleasant 77-year-old female was brought in with complaints of generalized weakness as per the admission note as patient has altered mental status with the such complaints or denied to me by patient and family members patient is alert oriented 3 mental status is at her baseline. There is a concern that patient may have had slurred speech although CT of the head did not show any significant abnormality and patient had previous history of stroke is on Lipitor. Patient is found to be hyponatremic upon further cushioning patient had diarrhea for 2 weeks and she does admit to suprapubic pain and dysuria although patient doesn't have any specific tenderness urine analysis is not significantly abnormal but mildly abnormal. Patient has mildly elevated troponin of 0.063 leukocytosis of 11.1 and a fever of 100.3. Patient doesn't have any obvious cellulitis or rash because of which Vanco mycin was discontinued patient was given a dose of vancomycin and cefepime. Patient doesn't have any obvious weakness patient is also hypomagnesemia 11/05/2022 . . Patient is seen and evaluated in follow-up today maintained on IV antibiotics in the form of ceftriaxone with infectious disease along with neurology following. Patient also with some electrolyte abnormalities including hypokalemia at 3.3 and sodium is slightly improved at 131. Patient also being followed by neurology awaiting to undergo EEG tonight which is currently pending. Patient with significant weakness recommend PT/OT therapy evaluation. patient daughter at the bedside with questions and concerns were answered to the best of our ability. Will await PT/OT therapy evaluation and discuss possible ECF if that is recommended. Patient is currently afebrile and WBC has normalized with no reports of chest pain or shortness of breath noted. Patient denies nausea or vomiting and tolerating diet. Needs encouragement with oral intake as patient continues with significant weakness. Patient denies pain or burning with urination and currently has indwelling Montaño catheter and will remove and monitor for any retention. 11/06/2022 Patient is seen and evaluated in follow-up this morning to report significant we akness and awaiting to be evaluated by physical therapy again today. Daughter bedside with many questions and concerns regarding an echo and MRI of the brain that was ordered by neurology. There was a noted arrhythmia on EEG with patient and history of CVA and initially on admission was a slight bump in troponin most likely due to dehydration although neurology would like to rule out any further CVA. MRI to occur sometime this afternoon per nursing staff. Patient is currently afebrile reports her diarrhea has improved and has not had a bowel movement since. Patient had Montaño catheter removed and is voiding and patient reports incontinent due to her weakness. Patient is tolerating diet and encouraged oral intake with no nausea or vomiting noted. Patient denies chest pain or shortness of breath. [facility] has accepted the patient and will await MRI of the brain and consulted cardiology for this mildly elevated troponin. Repeat troponin is ordered and pending. Review of systems: Constitutional: No reports of fatigue, fever, or chills Cardiovascular: No reports of chest pain or palpitations Respiratory: No reports of shortness of breath or cough GI: No reports of nausea, vomiting, or diarrhea : No reports of dysuria or retention reports incontinent Neurovascular: reports of generalized weakness All medications have been reviewed PHYSICAL EXAMINATION: GENERAL: The patient is alert and oriented x3, not in any acute distress. Well developed, well nourished. HEENT: Pupils are round and equally reacting to light. EOMI. No scleral icterus. No conjunctival pallor. Normocephalic, atraumatic. No pharyngeal erythema. No thyromegaly. CARDIOVASCULAR: S1 and S2 present. No murmurs, rubs, or gallops. PULMONARY: Chest is clear to auscultation, no wheezing or crackles. ABDOMEN: Soft, epigastric tenderness , nondistended, normoactive bowel sounds. No palpable organomegaly. MUSCULOSKELETAL: No joint swelling or deformity. EXTREMITIES: No cyanosis, clubbing, or pedal edema. NEUROLOGICAL: Gross neurological examination did not reveal any focal deficits. Does have generalized weakness SKIN: No rashes. Assessment: -Generalized weakness and fatigue: Secondary to hyponatremia which is again secondary to diarrhea patient denied any recent diuretic use patient currently continued on IV fluids. -Sepsis: Secondary to possibility of urinary tract infection. Blood cultures are negative thus far -Mildly elevated troponin secondary to sepsis -Diarrhea: Probably infectious or inflammatory diarrhea, improving -Hypovolemic hyponatremia: Secondary to diarrhea: IV fluids as mentioned above -hypomagnesemia: Secondary to diarrhea and will be replaced. -type 2 diabetes mellitus hold off on her home regimen patient will be on sliding scale insulin -Hyperlipidemia -Hypertension -History of CVA in 2021 -Hyperthyroidism -DVT prophylaxis: Lovenox -GI prophylaxis -Full code Plan: Recommend continue with current medications with management of infectious disea se and neurology. Patient underwent EEG and negative for any epileptiform discharges. Neurology ordered brain MRI to rule out any further CVA as patient does have history of CVA in the past, echo is pending along with repeat troponin Infectious disease following maintained on ceftriaxone and urinalysis mild with no culture sent, will likely continue on a short course of oral Ceftin on discharge Patient with significant weakness and not much of an oral intake encouraged increased activity as tolerated and oral intake. PT/OT therapy evaluated the patient recommending rehab Case management following and patient has been accepted at [facility] Sodium slightly improved on gentle IV hydration will continue follow-up with repeat labs. Cardiology consult was placed and pending due to minimally elevated troponins Recommend follow-up labs in a.m. possible discharge in the next 24-48 hours The impression and plan of care has been dictated by Tracie Brothers, Nurse Practitioner as directed. Dr. Ramone MD I have performed a history and examination and MDM of this patient, discussed the same with the dictator, and agree with the dictator's assessment and plan as written ,documented as a scribe. Based on total visit time, I have performed more than 50% of the visit. Objective - Vital Signs Vital signs: Vital Signs Temp 97.4 F L 11/06/22 08:00 Pulse 69 11/06/22 08:00 Resp 16 11/06/22 08:00 BP 143/68 11/06/22 08:00 Pulse Ox 94 L 11/06/22 08:00 FiO2 Intake & Output 11/05/22 11/06/22 11/06/22 18:59 06:59 18:59 Intake Total 250 Output Total 825 Balance -825 250 Intake: Oral 250 Output: Urine 825 Other: Voiding Method Indwelling Catheter Indwelling Catheter # Voids 1 # Bowel Movements 1 - Labs CBC & Chem 7: 11/05/22 07:11 11/06/22 08:03 Labs: Abnormal Lab Results - Last 24 Hours (Table) 11/05/22 11/05/22 11/05/22 Range/Units 07:11 07:11 11:46 Sodium (137-145) mmol/L Glucose (74-99) mg/dL POC Glucose (mg/dL) 177 H (70-110) mg/dL Hemoglobin A1c 7.1 H (<=6.0) % HDL Cholesterol 35.80 L (40.00-60.00) mg/dL Vitamin B12 1515.0 H (200.0-944.0) pg/mL 11/05/22 11/05/22 11/06/22 Range/Units 16:30 19:53 06:02 Sodium (137-145) mmol/L Glucose (74-99) mg/dL POC Glucose (mg/dL) 208 H 250 H 160 H (70-110) mg/dL Hemoglobin A1c (<=6.0) % HDL Cholesterol (40.00-60.00) mg/dL Vitamin B12 (200.0-944.0) pg/mL 11/06/22 Range/Units 08:03 Sodium 131 L (137-145) mmol/L Glucose 161 H (74-99) mg/dL POC Glucose (mg/dL) (70-110) mg/dL Hemoglobin A1c (<=6.0) % HDL Cholesterol (40.00-60.00) mg/dL Vitamin B12 (200.0-944.0) pg/mL Microbiology - Last 24 Hours (Table) 11/03/22 19:35 Blood Culture - Preliminary Blood
[2022-11-06] MEDS: MONTELUKAST 10 MG TAB PO SCH (21:32)
[2022-11-07] MEDS ORDERED: hydrALAZINE HCL 25 MG TAB PO STA (01:19)
[2022-11-07 06:17] LABS: Glucose,Whole Blood 139 mg/dL (70-110)
[2022-11-07] MEDS: INSULIN ASPART (NovoLOG) 100 UNIT/ML VIAL SQ SCH ×2 (06:42→12:45)
[2022-11-07] MEDS: METOPROLOL SUCCINATE (ER) 25 MG TAB.ER.24H PO SCH (06:47)
[2022-11-07] MEDS: ACETAMINOPHEN TAB 500 MG TAB PO PRN (06:47)
[2022-11-07 07:54] LABS: African American GFR (CKD) >90 (>60 ml/min/1.73 sqM); Anion Gap 6 mmol/L; Blood Urea Nitrogen 11 mg/dL (7-17); Calcium 8.3 mg/dL (8.4-10.2); Carbon Dioxide 27 mmol/L (22-30); Chloride 99 mmol/L (98-107); Glucose 146 mg/dL (74-99); Magnesium 1.5 mg/dL (1.6-2.3); Non-African American GFR(CKD) >90 (>60 ml/min/1.73 sqM); Potassium 3.3 mmol/L (3.5-5.1); Sodium 132 mmol/L (137-145)
[2022-11-07] MEDS: ALBUTEROL NEBULIZED 2.5 MG/3 ML INHALATION PRN ×2 (08:07→11:21)
[2022-11-07] MEDS: ENOXAPARIN 40 MG/0.4 ML SYRINGE SQ SCH (08:08)
[2022-11-07] MEDS: CHOLECALCIFEROL 25 MCG (1000 IU) TABLET PO SCH (08:08)
[2022-11-07] MEDS: ISOSORBIDE MONONITRATE ER 30 MG TAB.ER.24H PO SCH (08:08)
[2022-11-07] MEDS: ASPIRIN 81 MG PO SCH (08:08)
[2022-11-07] MEDS: ATORVASTATIN 40 MG TAB PO SCH (08:08)
[2022-11-07 08:14] VITALS: RESP 16; TEMP 98.2
[2022-11-07] MEDS ORDERED: Potassium Replacement Protocol 1 EACH MISC MISCELLANE PRN (08:17)
[2022-11-07] MEDS: POTASSIUM CHLORIDE ER 20 MEQ TAB.ER PO SCH ×2 (08:49→08:50)
[2022-11-07] MEDS ORDERED: LOSARTAN 50 MG TAB PO SCH (09:45)
[2022-11-07] MEDS ORDERED: METOPROLOL SUCCINATE (ER) 50 MG TAB.ER.24H PO SCH (09:45)
[2022-11-07] MEDS ORDERED: Magnesium Replacement Protocol 1 EACH MISC MISCELLANE PRN (10:21)
[2022-11-07] MEDS: MAGNESIUM SULFATE-D5W PMX 1 GM in DEXTROSE/WATER 1 100ML.BAG IVPB SCH ×2 (11:45→14:09)
[2022-11-07 11:51] VITALS: BP 145/65; PULSE 86
[2022-11-07 12:07] LABS: Glucose,Whole Blood 175 mg/dL (70-110)
--- NOTE | 2022-11-07 12:31 | CONS ---
CONSULTATION REASON FOR CONSULTATION: Mildly elevated troponin and arrhythmia on initial EKG. HISTORY OF PRESENT ILLNESS: Ms. Leona Rangel is a 77-year-old lady, who has been admitted to the hospital mainly with complaints of generalized weakness and altered mentation, and on arrival, she had an EKG which revealed sinus mechanism with PACs. There was a question of some confusion and slurred speech, and this workup is in progress. She had a CT of the head that did not reveal any significant abnormalities. Initial troponin was 0.06, and the subsequent troponin was 0.01. Her thyroid functions are normal. Electrolytes are also normal. Potassium is, however, low at 3.3, and this is being supplemented. At the time of my evaluation, she is resting comfortably without any chest pain, shortness of breath, or palpitation. PAST MEDICAL HISTORY: Remarkable for bronchial asthma, diabetes mellitus, hypertension, fibromyalgia, and history of some thyroid disease, details are unavailable. MEDICATIONS AT HOME: Include: 1. Metformin. 2. Glipizide. 3. Metoprolol succinate 12.5 mg. 4. Imdur 30 mg daily. 5. Atorvastatin 40 mg daily. 6. Aspirin 81 mg daily. PHYSICAL EXAMINATION: VITAL SIGNS: Blood pressure is 140/70. Pulse rate is 76 per minute, regular. HEENT: Unremarkable. Fundus was not examined by me. NECK: Supple. There is JVD, 1 cm. No carotid bruit. HEART: Reveals S1 and S2 with ejection systolic murmur at the base. Second heart sound is preserved. LUNGS: Clear. ABDOMEN: Soft and nontender. EXTREMITIES: Lower extremities reveal normal pulses. No edema. CENTRAL NERVOUS SYSTEM: Normal. DIAGNOSTIC STUDIES: EKG revealed sinus mechanism with PACs, LVH by voltage criteria, nonspecific ST-T changes. IMPRESSION: 1. No significant cardiac arrhythmia either on resting EKG on arrival or on the telemetry review. The patient has some premature atrial contractions. 2. Hypertension. 3. Type 2 diabetes. 4. Hyperlipidemia. 5. No evidence to suggest any significant arrhythmia. RECOMMENDATIONS: I am suggesting that we increase the beta-stephanie to 50 mg metoprolol succinate daily, add losartan 50 mg daily, and continue her other medications. We can discontinue the Imdur that she is taking. It is possible that the patient may have some [id number] aortic stenosis as well, but the second heart sound is preserved, and I do not think it is significant. No other intervention from a cardiac standpoint. We will continue to see her as needed. MMODL / IJN: [id number] /
--- NOTE | 2022-11-07 12:31 | P.DS ---
Providers Date of admission: 11/03/22 21:06 Expected date of discharge: 11/07/22 Attending physician: Adele Dougherty MD Consults: 11/03/22 21:06 Consult Physician Routine Consulting Provider: Aki Salinas Consult Reason/Comments: sirs/sepsis Do you want consulting provider notified?: Yes 11/03/22 21:15 Consult Physician Routine Consulting Provider: Nick Sanders Consult Reason/Comments: altered mental status Do you want consulting provider notified?: Yes 11/06/22 15:44 Consult Physician Urgent Consulting Provider: Kasandra Sheehan Consult Reason/Comments: arrhythmia noted on eeg, mildly elevated trop on admission Do you want consulting provider notified?: Yes Primary care physician: Madelin Jefferson Hospital Course: Final diagnosis -Generalized weakness and fatigue: Secondary to hyponatremia which is again secondary to diarrhea -Sepsis: Secondary to possibility of urinary tract infection, present on admission. Blood cultures are negative -Mildly elevated troponin secondary to sepsis,ACS ruled out per cardiology -Diarrhea: Probably infectious or inflammatory diarrhea, improving -Hypovolemic hyponatremia: Secondary to diarrhea, improving -hypomagnesemia: , Improving -type 2 diabetes mellitus, [id number] -Hyperlipidemia -Hypertension -History of CVA in 2021 -Hypothyroidism -DVT prophylaxis: Lovenox -GI prophylaxis -Full code Discharge disposition Patient is being discharged in a stable condition with guarded prognosis to [facility]. Patient will follow-up with Dr. Jefferson in the outpatient setting upon discharge. Patient is to continue with oral Ceftin twice daily for the next 1 week and recommended outpatient follow-up with neurology and nephrology once discharged from [facility]. Total time taken is greater than 35 minutes. Hospital course This is a 77-year-old female who was recently admitted with significant weakness and dehydration and diarrhea that had been ongoing. Patient with multiple electrolyte abnormalities including potassium and magnesium that were low and replaced. Patient also hyponatremic which has been ongoing in the outpatient setting. Patient with concerns of sepsis on admission with severe dehydration. Patient underwent EEG as patient had significant weakness and family was concerned about altered mentation all patient was baseline an EEG was normal with no discharge is noted there was note of a possible arrhythmia and patient did have a mildly bumped troponin of 0.063 and repeat troponin was negative. Patient was evaluated by cardiology and resumed on losartan and metoprolol. And has been cleared. Patient with concerns of UTI although urinalysis was not too impressive for urinary tract infection in patient with significant diarrhea and incontinence and was treated with ceftriaxone with infectious disease following closely. Patient will continue on a short course of oral Ceftin 500 mg twice daily for the next 1 week. Patient with significant weakness evaluated by physical therapy recommending subacute rehab and patient is now agreeable and will be going to [facility]. Please refer to other consultation notes for further HPI. Currently no reports of chest pain, shortness of breath, or palpitations. Patient is afebrile. No reports of nausea or vomiting and patient is tolerating diet. Patient will be going to [facility] today. Physical exam: Gen: This is a 77-year-old female who is awake, alert and oriented 3, well- developed, well-nourished HEENT: Head is atraumatic, normocephalic. Pupils equal, round. Sclerae is anicteric. NECK: Supple. No JVD. No lymphadenopathy. No thyromegaly. LUNGS:Diminished breath sounds bilaterally with no wheezes or rhonchi. No intercostal retractions. HEART: Regular rate and rhythm. No murmur. ABDOMEN: Soft. Bowel sounds are present. No masses. No tenderness. EXTREMITIES: No pedal edema. No calf tenderness. NEUROLOGICAL: Patient is awake, alert and oriented x3. Cranial nerves 2 through 12 are grossly intact. Diffusely weak Please refer to medication reconciliation sheet for a list of medications. The impression and plan of care has been dictated by Tracie Brothers, Nurse Practitioner as directed. Dr. Ramone MD I have performed a history and examination and MDM of this patient, discussed the same with the dictator, and agree with the dictator's assessment and plan as written ,documented as a scribe. Based on total visit time, I have performed more than 50% of the visit. Plan - Discharge Summary New Discharge Prescriptions: New cefUROXime axetiL [Ceftin] 500 mg PO BID 7 Days #14 tab Losartan [Cozaar] 50 mg PO DAILY tab Magnesium Oxide [Mag-Ox] 400 mg PO BID #60 tablet INSULIN ASPART (NovoLOG) [NovoLOG (formulary)] 0 unit SQ ACHS each oxyBUTYnin chloride [Ditropan] 2.5 mg PO DAILY #30 tab Enoxaparin [Lovenox] 40 mg SQ DAILY each Metoprolol Succinate (ER) [Toprol XL] 50 mg PO DAILY tab Albuterol Nebulized [Ventolin Nebulized] 2.5 mg INHALATION RT-Q6H ml Continue Montelukast [Singulair] 10 mg PO HS Albuterol Sulfate [Ventolin HFA] 2 puff INHALATION RT-Q4H PRN PRN Reason: Shortness Of Breath Atorvastatin [Lipitor] 40 mg PO DAILY Diclofenac Sodium Gel [Voltaren Gel] 1 applic TOPICAL QID PRN PRN Reason: Pain Omeprazole [PriLOSEC] 20 mg PO DAILY Aspirin EC [Ecotrin Low Dose] 81 mg PO DAILY Acetaminophen/Diphenhydramine [Tylenol PM 500-25mg] 1 tab PO HS Gabapentin [Neurontin] 100 mg PO BID PRN #4 cap PRN Reason: NERVE PAIN Acetaminophen Tab [Tylenol] 1,000 mg PO Q6HR PRN PRN Reason: Pain Or Fever > 100.5 Multivit-Min/Iron/Folic/Lutein [Centrum Silver Women Tablet] 1 tab PO DAILY glipiZIDE [Glucotrol] 5 mg PO BID Cholecalciferol [Vitamin D3 (25 Mcg = 1000 Iu)] 50 mcg PO DAILY Discontinued metFORMIN HCL 500 - 1,000 mg PO BID Isosorbide Mononitrate ER [Imdur] 30 mg PO DAILY Magnesium Chloride [Mag64] 128 mg PO HS Metoprolol Succinate [Metoprolol Succinate ER] 12.5 mg PO HS Discharge Medication List Albuterol Sulfate [Ventolin HFA] 2 puff INHALATION RT-Q4H PRN 05/04/14 [History] Montelukast [Singulair] 10 mg PO HS 05/04/14 [History] Atorvastatin [Lipitor] 40 mg PO DAILY 12/31/16 [History] Acetaminophen Tab [Tylenol] 1,000 mg PO Q6HR PRN 11/03/22 [History] Diclofenac Sodium Gel [Voltaren Gel] 1 applic TOPICAL QID PRN 11/03/22 [History] Multivit-Min/Iron/Folic/Lutein [Centrum Silver Women Tablet] 1 tab PO DAILY 11/03/22 [History] Acetaminophen/Diphenhydramine [Tylenol PM 500-25mg] 1 tab PO HS 11/04/22 [History] Aspirin EC [Ecotrin Low Dose] 81 mg PO DAILY 11/04/22 [History] Cholecalciferol [Vitamin D3 (25 Mcg = 1000 Iu)] 50 mcg PO DAILY 11/04/22 [History] Omeprazole [PriLOSEC] 20 mg PO DAILY 11/04/22 [History] glipiZIDE [Glucotrol] 5 mg PO BID 11/04/22 [History] Albuterol Nebulized [Ventolin Nebulized] 2.5 mg INHALATION RT-Q6H ml 11/07/22 [Rx] Enoxaparin [Lovenox] 40 mg SQ DAILY each 11/07/22 [Rx] Gabapentin [Neurontin] 100 mg PO BID PRN #4 cap 11/07/22 [Rx] INSULIN ASPART (NovoLOG) [NovoLOG (formulary)] 0 unit SQ ACHS each 11/07/22 [Rx] Losartan [Cozaar] 50 mg PO DAILY tab 11/07/22 [Rx] Magnesium Oxide [Mag-Ox] 400 mg PO BID #60 tablet 11/07/22 [Rx] Metoprolol Succinate (ER) [Toprol XL] 50 mg PO DAILY tab 11/07/22 [Rx] cefUROXime axetiL [Ceftin] 500 mg PO BID 7 Days #14 tab 11/07/22 [Rx] oxyBUTYnin chloride [Ditropan] 2.5 mg PO DAILY #30 tab 11/07/22 [Rx] Follow up Appointment(s)/Referral(s): Madelin Jefferson MD [Primary Care Provider] - 1 Week Claudio Ku MD [REFERRING] - 1 Week Ambulatory/Diagnostic Orders: Basic Metabolic Panel [LAB.AMB] Time Frame: 3 Days, Location: None Selected Activity/Diet/Wound Care/Special Instructions: Patient is going to [facility] Activity as tolerated Continue taking Ceftin 500 mg twice daily for the next 1 week and then may discontinue Recommend follow-up labs of BMP and magnesium in 2-3 days Encourage oral intake and continue diabetic heart healthy diet Recommend continue monitoring Accu-Cheks before meals and at bedtime and continue sliding scale continue to hold metformin for now Recommend follow-up with neurologist outpatient Follow-up with primary care provider on discharge Discharge Disposition: TRANSFER TO SNF/ECF
[2022-11-07] MEDS ORDERED: MAGNESIUM OXIDE 400 MG TAB PO STA (13:41)
--- NOTE | 2022-11-07 15:18 | P.PN ---
Subjective Progress Note Date: 11/07/22 Principal diagnosis: UTI and diarrhea Patient is a 77-year-old female with a past medical histoy significant for diabetes mellitus hypertension hyperlipidemia has been brought into the ER last evening for evaluation of mental status changes, patient did have a positive UA concerning for UTI. On today's evaluation that is 11/07/2022, patient continues to be afebrile, the patient is breathing comfortably on room air, the patient denies chest pain shortness of breath or cough, the patient diarrhea has improved, feeling better no new symptoms Objective - Vital Signs Vital signs: Vital Signs Temp 98.2 F 11/07/22 08:00 Pulse 80 11/07/22 11:32 Resp 16 11/07/22 11:32 BP 153/76 11/07/22 08:00 Pulse Ox 96 11/07/22 08:00 FiO2 Intake & Output 11/06/22 11/07/22 11/07/22 18:59 06:59 18:59 Intake Total 675 360 Balance 675 360 Intake: Oral 675 360 Other: Voiding Method Bedside Commode Bedside Commode # Voids 1 - Exam GENERAL DESCRIPTION: An elderly female lying in bed in no distress RESPIRATORY SYSTEM: Unlabored breathing , decreased breath sounds at bases HEART: S1 S2 regular rate and rhythm , ABDOMEN: Soft , no tenderness EXTREMITIES: No edema feet - Labs CBC & Chem 7: 11/05/22 07:11 11/07/22 07:04 Labs: Abnormal Lab Results - Last 24 Hours (Table) 11/06/22 11/06/22 11/06/22 Range/Units 11:49 16:59 19:51 Sodium (137-145) mmol/L Potassium (3.5-5.1) mmol/L Glucose (74-99) mg/dL POC Glucose (mg/dL) 165 H 142 H 156 H (70-110) mg/dL Calcium (8.4-10.2) mg/dL Magnesium (1.6-2.3) mg/dL 11/07/22 11/07/22 Range/Units 06:16 07:04 Sodium 132 L (137-145) mmol/L Potassium 3.3 L (3.5-5.1) mmol/L Glucose 146 H (74-99) mg/dL POC Glucose (mg/dL) 139 H (70-110) mg/dL Calcium 8.3 L (8.4-10.2) mg/dL Magnesium 1.5 L (1.6-2.3) mg/dL Microbiology - Last 24 Hours (Table) 11/03/22 19:35 Blood Culture - Preliminary Blood Assessment and Plan (1) UTI (urinary tract infection) Status: Acute Code(s): N39.0 - URINARY TRACT INFECTION, SITE NOT SPECIFIED SNOMED Code(s): 99695668 (2) Diarrhea Status: Acute Code(s): R19.7 - DIARRHEA, UNSPECIFIED SNOMED Code(s): 11903788 Plan: 1patient was in the hospital with mental status changes in this patient who did have low-grade fever did have mild elevated white count CT abdominal pelvis concerning for possible cystitis and did have mild symptoms with a possible component of UTI from enteric gram-negative pathogen 2-patient did have resolution of her diarrhea unfortunately no stool studies were done 3-patient has shown overall clinical improvement patient finish therapy with a short course of Oral Ceftin and close outpatient follow-up Time with Patient: Less than 30
--- NOTE | 2022-11-11 12:15 | CDI ---
Documentation Clarification Form Date: 11/11/22 From: Karma Mora Admit Date: 11/03/2022 09:06:00 PM Patient Name: Leona Rangel Visit Number: [id number] Discharge Date: 11/07/2022 03:00:00 PM ATTENTION: The Clinical Documentation Specialists (CDI) and [facility] Coding Staff appreciate your assistance in clarifying documentation. Please respond to the clarification below the line at the bottom and electronically sign. The CDI & [facility] Coding staff will review the response and follow-up if needed. Please note: Queries are made part of the Legal Health Record. If you have any questions, please contact the author of this message via ITS. Dr. Anisa Pack, UTI is documented, patient presented with Montaño catheter in place. Additional clarification regarding the etiology of the UTI is requested. History/Risk Factors: sepsis hyponatremia, thoracic aortic ectasia, T2DM, HLD, HTN, hypothyroidism, hypomagnesemia, hypokalemia, fibromyalgia Clinical Indicators: Patient has a Montaño catheter Urinalysis: Urine protein 2+, urine glucose 2+, urine ketones 3+, leukocyte esterase trace, WBC 10, urine bacteria rare Urine culture: none Lab results: Lactic acid 1.3, WBC 11.1, Neutrophils 9.8 T 100.0, P 122, R 18, BP 186/114 Treatment: Cefepime HCL IV, Ceftriaxone Sodium IV, Vancomycin HCL IV Please clarify the etiology of the UTI, if known: [ x ] Montaño catheter [ ] UTI not related to catheter [ ] Other condition, please specify [ ] Unable to determine MTDD
--- NOTE | 2022-11-11 12:57 | P.PN ---
Subjective Progress Note Date: 11/06/22 Patient was seen for a follow-up. Patient is laying comfortably in the bed, offers no new complaints. Patient offers no new complaints. She is undergoing MRI of the brain later today. Patient will be probable transfer to [facility]. Patient's telemetry monitoring showing sinus rhythm. No other arrhythmia. Objective - Vital Signs Vital signs: Vital Signs Temp 97.6 F 11/06/22 12:00 Pulse 76 11/06/22 12:00 Resp 16 11/06/22 12:00 BP 157/79 11/06/22 12:00 Pulse Ox 96 11/06/22 12:00 FiO2 Intake & Output 11/05/22 11/06/22 11/06/22 18:59 06:59 18:59 Intake Total 675 Output Total 825 Balance -825 675 Intake: Oral 675 Output: Urine 825 Other: Voiding Method Indwelling Catheter Indwelling Catheter # Voids 1 # Bowel Movements 1 - Exam Patient's mental status, speech and language functions are normal. Cranial nerves are normal. On muscle strength testing (right/left) patient has left pronator drift which she attributes to the left rotator cuff tear. Biceps 5/5, triceps 5/5, humanities instructor 5/5-, hip flexion 4+/4+, ankle dorsiflexion 5/5, inversion 5/5, peronei 5/5. Sensations are equal, with no neglect Cerebellar function showed no ataxia. - Labs CBC & Chem 7: 11/05/22 07:11 11/07/22 07:04 Labs: Abnormal Lab Results - Last 24 Hours (Table) 11/05/22 11/05/22 11/05/22 Range/Units 07:11 16:30 19:53 Sodium (137-145) mmol/L Glucose (74-99) mg/dL POC Glucose (mg/dL) 208 H 250 H (70-110) mg/dL HDL Cholesterol 35.80 L (40.00-60.00) mg/dL Vitamin B12 1515.0 H (200.0-944.0) pg/mL 11/06/22 11/06/22 11/06/22 Range/Units 06:02 08:03 11:49 Sodium 131 L (137-145) mmol/L Glucose 161 H (74-99) mg/dL POC Glucose (mg/dL) 160 H 165 H (70-110) mg/dL HDL Cholesterol (40.00-60.00) mg/dL Vitamin B12 (200.0-944.0) pg/mL Microbiology - Last 24 Hours (Table) 11/03/22 19:35 Blood Culture - Preliminary Blood Assessment and Plan Assessment: * Episode of unresponsiveness (difficulty waking up), unclear etiology. Rule out syncope, seizure, other etiologies. Reasons possible multifactorial as mentioned below. Rule out CVA. * Hyponatremia * Recent diarrhea for 2 weeks. * Possible cystitis * Hypertension * Diabetes * History of CVA affected balance in November 2021 * History of right CEA in 2000 * History of 2 back surgeries Plan: * Carotid Doppler revealed less than 50% stenosis of bilateral carotid bifurcations. Antegrade flow in both vertebral arteries. * EEG was normal awake and drowsy. No focal, lateralized or epileptiform activity was seen. EKG channel showed irregular heart rhythm. Correlate for arrhythmia. * Telemetry monitoring showing sinus rhythm with some runs of PSVT in 140. * 2-D echo revealed normal left-ventricular size and systolic function with EF 55-60%. Mild mitral and aortic regurgitation with mild to moderate aortic stenosis. Cardiology has seen the patient. No intervention recommended. * MRI of the brain revealed old lacunar infarct right basal ganglia on. Periventricular and deep white matter chronic appearing macro square ischemic Change. Atrophy. I personally reviewed MRI, agree with the findings. No acute stroke. * Fasting lipid panel with cholesterol 155, LDL 93, HDL 35 and triglycerides 128. Continue Lipitor 40 mg daily. * Hemoglobin A1c 7.1. Recommend optimize control of diabetes to target A1c < 7.0. * B12 1515, folate 14.10 , TSH 1.77 all normal * Treatment of hyponatremia and diarrhea as per IM. Patient has cystitis, patient on ceftriaxone. ID on board. * Continue aspirin 81 mg daily. * Neurologically otherwise clear.
--- NOTE | 2022-11-11 13:00 | P.PN ---
Subjective Progress Note Date: 11/07/22 Patient was seen for a follow-up. Patient is sitting in the wheelchair, getting ready for discharge. Patient is requesting prescription of Myrbetriq, as it has helped significantly with her urine control issues. Patient apparently was prescribed oxybutynin. Denies any other focal symptoms. Objective - Vital Signs Vital signs: Vital Signs Temp 98.2 F 11/07/22 08:00 Pulse 86 11/07/22 11:50 Resp 16 11/07/22 11:50 BP 145/65 11/07/22 11:50 Pulse Ox 96 11/07/22 08:00 FiO2 Intake & Output 11/06/22 11/07/22 11/07/22 18:59 06:59 18:59 Intake Total 675 1020 Balance 675 1020 Intake: Oral 675 1020 Other: Voiding Method Bedside Commode Bedside Commode # Voids 1 - Exam Patient's mental status, speech and language functions are normal. Cranial nerves are normal. On muscle strength testing (right/left) patient has left pronator drift which she attributes to the left rotator cuff tear. 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 Sensations are equal, with no neglect Cerebellar function showed no ataxia. - Labs CBC & Chem 7: 11/05/22 07:11 11/07/22 07:04 Labs: Abnormal Lab Results - Last 24 Hours (Table) 11/06/22 11/06/22 11/07/22 Range/Units 16:59 19:51 06:16 Sodium (137-145) mmol/L Potassium (3.5-5.1) mmol/L Glucose (74-99) mg/dL POC Glucose (mg/dL) 142 H 156 H 139 H (70-110) mg/dL Calcium (8.4-10.2) mg/dL Magnesium (1.6-2.3) mg/dL 11/07/22 11/07/22 Range/Units 07:04 12:05 Sodium 132 L (137-145) mmol/L Potassium 3.3 L (3.5-5.1) mmol/L Glucose 146 H (74-99) mg/dL POC Glucose (mg/dL) 175 H (70-110) mg/dL Calcium 8.3 L (8.4-10.2) mg/dL Magnesium 1.5 L (1.6-2.3) mg/dL Microbiology - Last 24 Hours (Table) 11/03/22 19:35 Blood Culture - Preliminary Blood Assessment and Plan Assessment: * Episode of unresponsiveness (difficulty waking up), unclear etiology. Rule out syncope, seizure, other etiologies. Reasons possible multifactorial as mentioned below. Rule out CVA. * Hyponatremia * Recent diarrhea for 2 weeks. * Possible cystitis * Hypertension * Diabetes * History of CVA affected balance in November 2021 * History of right CEA in 2000 * History of 2 back surgeries Plan: * Carotid Doppler revealed less than 50% stenosis of bilateral carotid bifurcations. Antegrade flow in both vertebral arteries. * EEG was normal awake and drowsy. No focal, lateralized or epileptiform activity was seen. EKG channel showed irregular heart rhythm. Correlate for arrhythmia. * Telemetry monitoring showing sinus rhythm with some runs of PSVT in 140. * 2-D echo revealed normal left-ventricular size and systolic function with EF 55-60%. Mild mitral and aortic regurgitation with mild to moderate aortic stenosis. Cardiology has seen the patient. No intervention recommended. * MRI of the brain revealed old lacunar infarct right basal ganglia on. Periventricular and deep white matter chronic appearing macro square ischemic Change. Atrophy. I personally reviewed MRI, agree with the findings. No acute stroke. * Fasting lipid panel with cholesterol 155, LDL 93, HDL 35 and triglycerides 128. Continue Lipitor 40 mg daily. * Hemoglobin A1c 7.1. Recommend optimize control of diabetes to target A1c < 7.0. * B12 1515, folate 14.10 , TSH 1.77 all normal * Treatment of hyponatremia and diarrhea as per IM. Patient has cystitis, patient on ceftriaxone. ID on board. * Continue aspirin 81 mg daily. * Patient given prescription of Myrbetriq 25 mg daily. Stop oxybutynin. Paper prescription was given. Patient ready to be discharged to rehab facility. * Neurologically clear.
== END 2022-11-07 15:00 | DRG 698 ==
LOC: EC 18:05 → 3SCARD 21:06
PROVIDERS: ADMIT Internal Medicine; ATTEND Internal Medicine
DX: T83.511A Infection and inflammatory reaction due to indwelling urethral catheter, initial encounter (principal); A41.9 Sepsis, unspecified organism; E87.1 Hypo-osmolality and hyponatremia; N39.0 Urinary tract infection, site not specified; I77.810 Thoracic aortic ectasia; E11.9 Type 2 diabetes mellitus without complications; Z20.822 Contact with and (suspected) exposure to COVID-19; Z28.310 Unvaccinated for COVID-19; E78.5 Hyperlipidemia, unspecified; E86.0 Dehydration; E86.1 Hypovolemia; I10 Essential (primary) hypertension; E03.9 Hypothyroidism, unspecified; E83.42 Hypomagnesemia; E87.6 Hypokalemia; I25.10 Atherosclerotic heart disease of native coronary artery without angina pectoris; I49.1 Atrial premature depolarization; M79.7 Fibromyalgia; R19.7 Diarrhea, unspecified; H26.9 Unspecified cataract; R77.8 Other specified abnormalities of plasma proteins; Z79.82 Long term (current) use of aspirin; Z79.84 Long term (current) use of oral hypoglycemic drugs; Z79.899 Other long term (current) drug therapy; W01.190A Fall on same level from slipping, tripping and stumbling with subsequent striking against furniture, initial encounter; Z96.643 Presence of artificial hip joint, bilateral; Z86.19 Personal history of other infectious and parasitic diseases; Z86.14 Personal history of Methicillin resistant Staphylococcus aureus infection; Z86.73 Personal history of transient ischemic attack (TIA), and cerebral infarction without residual deficits; Z88.6 Allergy status to analgesic agent; Z88.1 Allergy status to other antibiotic agents; Z91.041 Radiographic dye allergy status; Z88.5 Allergy status to narcotic agent; Z88.0 Allergy status to penicillin; Z88.8 Allergy status to other drugs, medicaments and biological substances; Z91.048 Other nonmedicinal substance allergy status
CPT/HCPCS: 36415; 70450; 70551; 71046; 72125; 74177; 80048; 80053; 80061; 81001; 82140; 82565; 82607; 82746; 83036; 83605; 83735; 84443; 84484; 85025; 85027; 85610; 85730; 87040; 87636; 93005; 93306; 93880; 94640; 95816; 96365; 96366; 96367; 96368; 96375; 96376; 99285

== ENCOUNTER → 2024-02-05 | Outpatient (CLI) | payer MEDICARE, BC ==
--- NOTE | 2024-02-05 18:34 | XR ---
EXAMINATION TYPE: XR foot complete LT DATE OF EXAM: 02/05/2024 5:05 PM CLINICAL INDICATION: Female, 79 years old with history of M79.672, M25.511; COMPARISON: None TECHNIQUE: XR foot complete LT examined in the AP, oblique, and lateral projections. FINDINGS: No evidence of any acute osseous pathology. Calcaneal plantar spurring is present. Calcaneal Achilles enthesophyte. Multifocal degeneration changes throughout the joints of the foot with osteophyte form ation and joint space narrowing. Mild hallux IMPRESSION: 1. No evidence of acute fracture. 2. Multifocal degeneration changes throughout the joints of the foot worse at the first digit metata rsophalangeal joint. 3. Mild hallux valgus.
--- NOTE | 2024-02-06 10:11 | XR ---
EXAMINATION TYPE: XR shoulder complete 3 views RT DATE OF EXAM: 02/05/2024 Comparison: None Clinical History: 79-year-old female fall in December, check for known fracture, M79.952, M25.483 Findings: There is moderate degenerative joint space narrowing and marginal spurring at the acromial clavicular joint. Inferior acromial spurring may be an indirect sign of underlying rotator cuff tear. There is a mildly comminuted and frankly displaced surgical neck fracture of the proximal right humerus. Media l displacement to 2.8 cm and impaction. The glenohumeral joint itself appears to be intact. Impression: 1. Nonhealed, two part fracture right humeral head with a large surgical neck component displaced med ially by 2.8 cm. 2. Inferior acromial spur may been a direct sign of a chronic rotator cuff tear.
== END | disposition home or self-care (01) ==
LOC: RADXRMAIN 16:38
PROVIDERS: ATTEND Internal Medicine

== ENCOUNTER 2024-04-06 10:18 | Day surgery (SDC) | payer MEDICARE, BC ==
[2024-04-05 14:24] VITALS: BMI 23.8
[~2024-04-06 10:18] MED LIST changes: +ALPRAZolam 0.25 MG TAB PO PRN; +ALPRAZolam 0.5 MG TAB PO PRN; +HEPARIN SODIUM,PORCINE (1 ML) 2,500 UNIT in SODIUM CHLORIDE 0.9% 250 ML IRRIGATION PRN; +HEPARIN SODIUM,PORCINE 10,000 UNIT in SODIUM CHLORIDE 0.9% 1,000 ML IRRIGATION PRN; -LACTATED RINGERS 1,000 ML IV SCH; -LIDOCAINE 1% 20 ML VIAL (10MG/ML) FOR IV START INTRADERMA PRN; +NITROGLYCERIN SL TABS 0.4 MG TAB SUBLINGUAL PRN; -TETRACAINE 0.5% OPHTH (PF) DROPS 4 ML BTL OP ONE; -TIMOLOL 0.5% OPHTH SOLN (PF) 0.2 ML DROPERETTE OP ONE
[2024-04-06] MEDS: IV FLUID CONTINUATION 1,000 ML IV ONE (10:45)
[2024-04-06 11:04] LABS: Glucose,Whole Blood 140 mg/dL (70-110)
[2024-04-06] MEDS: SODIUM CHLORIDE 0.9% 1,000 ML in EMPTY BAG 1 BAG IV SCH (11:06)
[2024-04-06 11:15] LABS: Anisocytosis Slight; Basophils % (A) 0 %; Eosinophils # (A) 0.1 k/uL (0-0.7); Eosinophils % (A) 2 %; HCT 42.7 % (34.0-46.0); HGB 13.3 gm/dL (11.4-16.0); Lymphocytes # (A) 1.1 k/uL (1.0-4.8); Lymphocytes % (A) 23 %; MCH 27.2 pg (25.0-35.0); MCHC 31.3 g/dL (31.0-37.0); MCV 87.1 fL (80.0-100.0); Mean Platelet Volume 8.4; Monocytes # (A) 0.3 k/uL (0-1.0); Monocytes % (A) 6 %; Neutrophils # (A) 3.3 k/uL (1.3-7.7); Neutrophils % (A) 67 %; Platelet Count 147 k/uL (150-450); RBC 4.89 m/uL (3.80-5.40); RDW 17.9 % (11.5-15.5); WBC 4.9 k/uL (3.8-10.6)
[2024-04-06] MEDS: ASPIRIN 81 MG PO STA (11:15)
[2024-04-06] MEDS: diphenhydrAMINE 50 MG/ML 1 ML VIAL IVP STA (11:16)
[2024-04-06] MEDS: FAMOTIDINE 20 MG/2 ML VIAL IV STA (11:17)
[2024-04-06] MEDS: methylPREDNISolone SOD SUCCI 125 MG/2 ML VIAL IV STA (11:18)
[2024-04-06 11:30] LABS: African American GFR (CKD) 80 (>60 ml/min/1.73 sqM); Anion Gap 10 mmol/L; Blood Urea Nitrogen 25 mg/dL (7-17); Calcium 9.4 mg/dL (8.4-10.2); Carbon Dioxide 30 mmol/L (22-30); Chloride 97 mmol/L (98-107); Glucose 156 mg/dL (74-99); Non-African American GFR(CKD) 70 (>60 ml/min/1.73 sqM); Potassium 4.2 mmol/L (3.5-5.1); Sodium 137 mmol/L (137-145)
[2024-04-06] MEDS: MIDAZOLAM 2 MG/2 ML VIAL IVP ONE (12:35)
[2024-04-06] MEDS: LIDOCAINE 1% INJ 10MG/ML (20 ML MDV) SQ ONE (12:36)
[2024-04-06] MEDS: IOPAMIDOL-370 100ML BTL INJ ONE (12:50)
[2024-04-06] MEDS ORDERED: RX INFO: IV CONTRAST WAS GIVEN 1 EACH MISC MISCELLANE PRN (12:52)
[2024-04-06] MEDS: SODIUM CHLORIDE 0.9% 1,000 ML IV SCH (13:20)
[2024-04-06] MEDS: hydrALAZINE HCL 20 MG/ML 1 ML VIAL IM STA (13:32)
[2024-04-06] MEDS: hydrALAZINE HCL 20 MG/ML 1 ML VIAL IVP STA ×2 (13:41→15:08)
[2024-04-06] MEDS ORDERED: ALBUTEROL NEBULIZED 2.5 MG/3 ML INHALATION PRN ×2 (14:59→21:21)
[2024-04-06] MEDS: ASPIRIN 325 MG TAB PO STA (15:06)
[2024-04-06] MEDS: ATORVASTATIN 80 MG TAB PO STA (15:06)
[2024-04-06] MEDS: ENALAPRILAT 1.25 MG/ML 1 ML VIAL IVP STA (16:05)
[2024-04-06 17:08] LABS: Glucose,Whole Blood 197 mg/dL (70-110)
[2024-04-06] MEDS: ALBUTEROL NEBULIZED 2.5 MG/3 ML INHALATION SCH (19:59)
[2024-04-06 20:05] LABS: Glucose,Whole Blood 235 mg/dL (70-110)
--- NOTE | 2024-04-06 20:06 | P.PCN ---
Date of Procedure: 04/06/24 Operative Findings: Cardiac catheterization report Performing physician Shadi Bethea MD Procedure performed Selective right and left coronary angiogram and left heart catheterization Ultrasound-guided access of the right radial artery Indication Symptomatic 79-year-old female patient with abnormal myocardial perfusion imaging stress test Complication None Level of sedation Moderate with sedation length of about 14 minutes Approach Right radial artery Procedure description Obtaining informed consent the patient was brought to the cardiac Bung Dropper. The right common femoral artery was cannulated using micropuncture technique under ultrasound guidance the micropuncture wire passed easily then I placed a 6 Dominican 11 cm sheath at the right common femoral artery. Selective right and left coronary angiogram performed using JL 4 for the left coronary system and notable for the right coronary system. Left heart catheterization was performed using the JR4 catheter which crossed the aortic valve then repeated pullback across the valve. The procedure was performed with no complication and by the end with a selective right common femoral artery angiogram Selective coronary angiogram The RCA is a large-caliber vessel and extremely calcified vessel and dominant vessel with intermediate to severe disease involving the distal portion The left main is a large-caliber vessel and calcified vessel with mild disease only The LCx is a large-caliber vessel and nondominant vessel with intermediate to severe disease involving the first obtuse marginal branch of the left circumflex. The LCx is very calcified The LAD is a large-caliber vessel with mild to moderate diffuse disease and intermediate to severe disease involving the distal LAD was noted and the LAD is also very calcified Hemodynamic The LVEDP was about 5 mmHg with a mean gradient across aortic valve of about 22 mm dean. 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
[2024-04-06] MEDS: MAGNESIUM OXIDE 400 MG TAB PO SCH (20:56)
[2024-04-06] MEDS: lisinopriL 5 MG TAB PO SCH (20:56)
[2024-04-06] MEDS: MONTELUKAST 10 MG TAB PO SCH (20:56)
[2024-04-06] MEDS: METOPROLOL SUCCINATE (ER) 25 MG TAB.ER.24H PO SCH (20:56)
[2024-04-06] MEDS: DULoxetine HCL 30 MG CAPSULE.DR PO SCH (20:56)
[2024-04-06] MEDS: MELATONIN 5 MG TABLET PO SCH (20:56)
[2024-04-06] MEDS: PANTOPRAZOLE 40 MG TABLET PO SCH (20:56)
[2024-04-06] MEDS: glipiZIDE 5 MG TAB PO SCH (20:56)
[2024-04-06] MEDS: MYRBETRIQ 25 MG PO SCH (20:57)
[2024-04-06] MEDS: ACETAMINOPHEN TAB 325 MG TAB PO PRN (21:05)
[2024-04-07 05:51] LABS: Glucose,Whole Blood 122 mg/dL (70-110)
[2024-04-07] MEDS: ALBUTEROL NEBULIZED 2.5 MG/3 ML INHALATION SCH (08:14)
[2024-04-07] MEDS: FOLIC ACID 1 MG TAB PO SCH (08:22)
[2024-04-07] MEDS: MULTIVITAMINS, THERA 1 EACH TAB PO SCH (08:22)
[2024-04-07] MEDS: ZINC SULFATE 220 MG CAP PO SCH (08:23)
[2024-04-07 09:10] VITALS: BP 142/70; PULSE 76; RESP 16; TEMP 97.9
--- NOTE | 2024-04-07 11:11 | P.DS ---
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 She is asymptomatic and hemodynamically stable. The patient is going to be discharged home later on today and I will follow-up with the patient next week in the office Plan - Discharge Summary Discharge Rx Participant: No New Discharge Prescriptions: Continue Albuterol Sulfate [Ventolin HFA] 2 puff INHALATION RT-Q4H PRN PRN Reason: Shortness Of Breath Melatonin [Melatonin Tr] 5 mg PO HS Magnesium Citrate and Oxide [Magnesium] 250 mg PO BID Folic Acid 800 mcg PO DAILY Zinc Gluconate [Zinc] 50 mg PO DAILY Mirabegron [Myrbetriq] 25 mg PO HS Multivit-Min/Iron/Folic/Lutein [Centrum Silver Women Tablet] 1 tab PO DAILY Albuterol Nebulized [Ventolin Nebulized] 2.5 mg INHALATION RT-Q6H ml Metoprolol Succinate (ER) [Toprol XL] 12.5 mg PO HS Ubidecarenone [Co Q-10] 500 mg PO DAILY DULoxetine HCL [Cymbalta] 30 mg PO HS Pantoprazole Sodium 40 mg PO HS lisinopriL [Zestril] 5 mg PO HS glipiZIDE [Glucotrol] 5 mg PO BID Montelukast Sodium 10 mg PO HS Nitroglycerin Sl Tabs [Nitrostat] 0.4 mg SUBLINGUAL Q5M PRN PRN Reason: Chest Pain Discharge Medication List Albuterol Sulfate [Ventolin HFA] 2 puff INHALATION RT-Q4H PRN 05/04/14 [History] Multivit-Min/Iron/Folic/Lutein [Centrum Silver Women Tablet] 1 tab PO DAILY 11/03/22 [History] Albuterol Nebulized [Ventolin Nebulized] 2.5 mg INHALATION RT-Q6H ml 11/07/22 [Rx] Magnesium Citrate and Oxide [Magnesium] 250 mg PO BID 05/09/23 [History] Melatonin [Melatonin Tr] 5 mg PO HS 05/09/23 [History] Metoprolol Succinate (ER) [Toprol XL] 12.5 mg PO HS 05/09/23 [History] DULoxetine HCL [Cymbalta] 30 mg PO HS 04/05/24 [History] Folic Acid 800 mcg PO DAILY 04/05/24 [History] Mirabegron [Myrbetriq] 25 mg PO HS 04/05/24 [History] Montelukast Sodium 10 mg PO HS 04/05/24 [History] Nitroglycerin Sl Tabs [Nitrostat] 0.4 mg SUBLINGUAL Q5M PRN 04/05/24 [History] Pantoprazole Sodium 40 mg PO HS 04/05/24 [History] Ubidecarenone [Co Q-10] 500 mg PO DAILY 04/05/24 [History] Zinc Gluconate [Zinc] 50 mg PO DAILY 04/05/24 [History] glipiZIDE [Glucotrol] 5 mg PO BID 04/05/24 [History] lisinopriL [Zestril] 5 mg PO HS 04/05/24 [History] Follow up Appointment(s)/Referral(s): Shadi Bethea MD [STAFF PHYSICIAN] - 1 Week (Office will call with appointment date and time) Patient Instructions/Handouts: *Surgery [facility] - After Heart Catheterization - [employer] Manager Instructions
== END 2024-04-07 11:31 | disposition home or self-care (01) ==
LOC: CATHCVL 10:18 → 6NMEDSUR 12:49 → CATHCVL 04-07 11:31
PROVIDERS: ATTEND Internal Medicine Interventional Cardiology
DX: I25.110 Atherosclerotic heart disease of native coronary artery with unstable angina pectoris (principal); I25.84 Coronary atherosclerosis due to calcified coronary lesion; I47.19 Other supraventricular tachycardia; I10 Essential (primary) hypertension; E11.51 Type 2 diabetes mellitus with diabetic peripheral angiopathy without gangrene; E78.5 Hyperlipidemia, unspecified; I77.810 Thoracic aortic ectasia; I78.0 Hereditary hemorrhagic telangiectasia; I08.0 Rheumatic disorders of both mitral and aortic valves; I65.23 Occlusion and stenosis of bilateral carotid arteries; Z79.84 Long term (current) use of oral hypoglycemic drugs; Z79.899 Other long term (current) drug therapy; Z86.73 Personal history of transient ischemic attack (TIA), and cerebral infarction without residual deficits; Z91.041 Radiographic dye allergy status; Z91.048 Other nonmedicinal substance allergy status; Z88.6 Allergy status to analgesic agent; Z88.0 Allergy status to penicillin; Z88.8 Allergy status to other drugs, medicaments and biological substances; Z82.49 Family history of ischemic heart disease and other diseases of the circulatory system
CPT/HCPCS: 94640 ×2; 93458; 80048; 85025; C1769 ×2; C1894; J2250; J0360; J1200; J2003; J3490; Q9967; J2919

== ENCOUNTER 2024-08-24 09:47 | Day surgery (SDC) | payer MEDICARE ==
[2024-08-24] MEDS ORDERED: LIDOCAINE 1% (10MG/ML) FOR IV START INTRADERMA PRN (10:35)
[2024-08-24] MEDS: IV FLUID CONTINUATION 1,000 ML IV ONE (10:46)
[2024-08-24 10:49] VITALS: TEMP 97
[2024-08-24] MEDS: LACTATED RINGERS 1,000 ML IV SCH (11:30)
[2024-08-24 11:31] LABS: Glucose,Whole Blood 135 mg/dL (70-110)
[2024-08-24] MEDS ORDERED: PROPOFOL 10 MG/ML 20 ML VIAL IV ONE (11:40)
[2024-08-24] MEDS ORDERED: LIDOCAINE 2% (PF) 20 MG/ML 5 ML VIAL ONE (11:40)
--- NOTE | 2024-08-24 12:06 | P.PCN ---
Date of Procedure: 08/24/24 Procedure(s) Performed: Brief history: Patient is a pleasant 79-year-old white female scheduled for an elective upper endoscopy as well as colonoscopy as a part of evaluation of severe symptomatic iron deficiency anemia. She was recently admitted to [facility] in [place] with shortness of breath and was noted to have a hemoglobin of 6.5 g/dL requiring to his apparent PRBC transfusion. She had a similar episode that happened in February 2024 requiring blood transfusion. Last vaginal colonoscopy will done in July 2020 that was unremarkable. She is scheduled for CABG and aortic valve replacement in 3 weeks. She denies any rectal bleeding or melena. Procedure performed: Esophagogastroduodenoscopy with biopsy Colonoscopy Preoperative diagnosis: Severe symptomatic regular diet deficiency anemia Anesthesia: MAC Procedure: After informed consent was obtained from the patient was brought into the endoscopy unit and IV sedation was administered by anesthesia under continuous monitoring. Initially upper endoscopy was done. The Olympus GF 160 video endoscope was inserted inserted into the mouth and esophagus intubated without any difficulty and was gradually advanced into the stomach and duodenum and carefully examined. The bulb and second part of the duodenum appeared normal. The scope was then withdrawn into the stomach adequately insufflated with air and upon careful examination the antrum had scattered erosions and a 5 mm superficial ulceration that was biopsied. Mucosa of the body, cardia and fundus appeared normal. The scope was then withdrawn into the esophagus. The GE junction was located at 40 cm to the incisors. It appeared regular with no erythema erosions or ulcerations. Rest of the esophagus appeared normal. Patient tolerated the procedure well. At this time the patient continued to remain sedation. Initial digital rectal examination was normal. Olympus CF 160 video colonoscope was then inserted into the rectum and gradually advanced to the cecum without any difficulty. Careful examination was performed as the scope was gradually being withdrawn. The prep was excellent. The cecum, ascending colon, transverse colon, descending colon, sigmoid colon and rectum appeared normal. Retroflexion was performed in the rectum and no lesions were noted. Patient tolerated the procedure well. Impression: 1. Upper endoscopy revealed 5 mm antral ulcer and antral erosive gastritis 2. Colonoscopy revealed small internal hemorrhoids but no evidence of colitis or colorectal neoplasia Recommendations: Findings of this examination were discussed with the patient as well as her family. She was advised to follow-up with the biopsy results. Increase Protonix to 40 mg twice daily and avoid NSAIDs.. Continue iron supplements daily. Monitor CBC on a monthly basis.
[2024-08-24 12:22] VITALS: RESP 16
[2024-08-24 12:58] VITALS: BP 114/72; PULSE 78
== END 2024-08-24 13:12 | disposition home or self-care (01) ==
LOC: ORWHC2ENDO 09:47
PROVIDERS: ATTEND Internal Medicine Gastroenterology
DX: K29.50 Unspecified chronic gastritis without bleeding (principal); K25.9 Gastric ulcer, unspecified as acute or chronic, without hemorrhage or perforation; K21.9 Gastro-esophageal reflux disease without esophagitis; K64.8 Other hemorrhoids; J45.909 Unspecified asthma, uncomplicated; D50.9 Iron deficiency anemia, unspecified; I10 Essential (primary) hypertension; E11.42 Type 2 diabetes mellitus with diabetic polyneuropathy; E07.9 Disorder of thyroid, unspecified; E78.5 Hyperlipidemia, unspecified; M19.90 Unspecified osteoarthritis, unspecified site; M79.7 Fibromyalgia; Z86.73 Personal history of transient ischemic attack (TIA), and cerebral infarction without residual deficits; Z88.8 Allergy status to other drugs, medicaments and biological substances; Z88.9 Allergy status to unspecified drugs, medicaments and biological substances; Z91.041 Radiographic dye allergy status; Z88.0 Allergy status to penicillin; Z88.6 Allergy status to analgesic agent; Z79.51 Long term (current) use of inhaled steroids; Z79.899 Other long term (current) drug therapy
CPT/HCPCS: 88305; 88342; 45378; 43239; J2704; J2003